=== PATIENT | male | born 1980 | race Caucasian/White ===

== ENCOUNTER 2016-11-01 07:18 | Inpatient (IN) | payer BC, OTHER ==
[~2016-11-01] VITALS: Ht 177.8 cm; Wt 98.0 kg
[2016-11-01 16:30] VITALS: BP 115/60
[2016-11-01] MEDS ORDERED: OLAN10TA3 PO (16:34)
[2016-11-01] MEDS ORDERED: VENL150C2 PO (16:34)
--- NOTE | 2016-11-01 16:35 | NUR ---
Intake assessment Pt seen by primary nurse down in intake. Pt has another person present, pt unwilling to fully answer all questions at this time. The following information was gathered then relayed to Dr Bell: VS: 115/60, HR 64, T: 98.4 R: 16 SpO2: 98% on RA. Pt states that he is allergic to PCN, but does not know what type of reaction he has when he takes it. Pt states he has a PMH of depression for which he takes effexor 150mg PO daily, last taken this morning. Zyprexa 10mg PO QHS, last taken on 10/31/16 PM. Pt states that he was prescribed suboxone, unwilling to provide details on dosage at this time. Pt also states that he takes valium as prescribed, unwilling to provide details at this time. Pt reports that he takes xanax 6mg PO daily x 6 months, last taken 11/01/16 in the morning. Will continue with assessment upon arrival to the unit. All needs addressed at this time.
[2016-11-01 18:05] LABS: *AMPHETAMINE, URINE NEGATIVE (NEGATIVE); *BARBITURATE, URINE NEGATIVE (NEGATIVE); *CANNABINOID, URINE POSITIVE (NEGATIVE); *COCCAINE, URINE NEGATIVE (NEGATIVE); *OPIATE, URINE POSITIVE (NEGATIVE); *PHENCYCLIDINE SCREEN,URINE NEGATIVE (NEGATIVE)
[2016-11-01] MEDS ORDERED: IBUPROFEN 600 MG TABLET PO PRN (18:45)
[2016-11-01] MEDS ORDERED: ONDANSETRON 4 MG/2 ML VIAL IM PRN (18:45)
[2016-11-01] MEDS ORDERED: LOPERAMIDE HCL 2 MG CAPSULE PO PRN ×2 (18:45)
[2016-11-01] MEDS ORDERED: HYDROXYZINE PAMOATE 25 MG CAPSULE PO PRN (18:45)
[2016-11-01] MEDS ORDERED: DICYCLOMINE HCL 20 MG TABLET PO PRN (18:45)
[2016-11-01] MEDS ORDERED: DIAZEPAM 5 MG TABLET PO PRN (18:45)
[2016-11-01] MEDS ORDERED: MIRALAX 17 GM POWD.PACK PO PRN (18:45)
[2016-11-01] MEDS ORDERED: MAG HYDROX/AL HYDROX/SIMETH 30 ML LIQUID UDC PO PRN (18:45)
[2016-11-01] MEDS ORDERED: ONDANSETRON ODT 4 MG TAB.RAPDIS SL PRN (18:45)
[2016-11-01] MEDS ORDERED: METHOCARBAMOL 750 MG TABLET PO PRN (18:45)
[2016-11-01] MEDS ORDERED: BUPRENORPHINE HCL 2 MG TAB.SUBL SL PRN (18:45)
[2016-11-01] MEDS ORDERED: diphenhydrAMINE 50 MG CAPSULE PO PRN (18:45)
[2016-11-01] MEDS ORDERED: CLONIDINE HCL 0.1 MG TABLET PO PRN (18:45)
[2016-11-01] MEDS ORDERED: DIAZEPAM 10 MG TABLET PO PRN ×2 (18:45)
[2016-11-01] MEDS ORDERED: MAGNESIUM HYDROXIDE 30 ML LIQUID UDC PO PRN (18:45)
[2016-11-01] MEDS ORDERED: ACETAMINOPHEN 325 MG TABLET PO PRN (18:45)
[2016-11-01] MEDS ORDERED: LORAZEPAM 2 MG/1 ML VIAL IM PRN (18:45)
--- NOTE | 2016-11-01 19:09 | NUR ---
End of shift note SBAR report given to shift production supervisor nurse. Pt admitted for opiate and benzo dependence. Pt refused to provide further admission information. Dr Bell aware. Pt is stable, appears to be slightly intoxicated. Pt is ambulating around unit with staff members. All needs addressed at this time. Pt is scheduled to start on a custom subutex and valium taper on 11/02/16.
[2016-11-01 19:59] LABS: BASOPHILS # (AUTO) 0.1 K/uL (0.0-8.0); HEMATOCRIT 38.5 % (36.7-47.1); HEMOGLOBIN 12.9 g/dL (12.5-16.3); MONOCYTES # (AUTO) 0.4 K/uL (2.0-10.0)
[2016-11-01 20:00] VITALS: BP 115/60
--- NOTE | 2016-11-01 20:00 | NUR ---
1999 ADMISSION NOTE: Patient pre-admitted to [facility] floor at 1700 by Racheal montoya RN. Patient is received awake, alert and sitting in his bedside chair, in his room # 302. Patient responds to nurse's greeting and introduction with a smile and a soft, " Hi, I'm doing okay and how are you doing?" Patient's color is tannish-pink and his skin is warm, dry and intact. Multiple black ink skin tatoos noted on patient's arm, legs and upper torso. Patient is oriented to person, place, day, date and his personal situation. Reoriented easily to time. Patient's lung sounds are clear bilaterally and active bowel sounds are noted X 4 abdominal Quads. Vital signs are: 98.4-82-18 113/75 o2 sat 94%, COWS 5, CIWA 3 Patient denies any pain at this time. Patient is admitted for: Suboxone, Valium, Xanax, Heroin and Alcohol withdrawal. Patient uses (1) Suboxone, 4 mg 2 times per week, oral. Last use was on 11/01/16, 4 mg p.o. (2) Valium, 30 to 40 mg oral, daily. Last use was on 11/01/16, 30 mg p.o. (3) Xanax, 4 to 6 mg oral, daily. Last use was on 11/01/16, 4 mg p.o. (4) Heroin, 1 to 2 grams IV daily. Last use was on 11/01/16, 1 gram IV. (5) Alcohol (Beer), 12-pack daily, oral. Last use was on 11/01/16 12 pack p.o. Patient states that he has been using these substances at these rates for the past 3 years. Patient states that he has been in several drug treatment facilities, (1) [place], [place], February for 2 weeks (2) [place], [place] Nov, 2015 for 10 days (3) [place], [place] July to September, for 3 months (4) [facility], Nov, 2015 for 10 days. Patient states that he is unable to name anymore facilities specifically. Patient's longest period of sobriety was 4 months, in 2005. Patient states further that he attends AA/NA but doesn't presently have a sponsor. Patient denies any seizure history and he states that he presently does not have a PCP. Patient is allergic to PENICILLINS, and he states that he has a medical/psychiatric history of: Anxiety, Depression, Bipolar and Hepatitis C. Patient states that he has had a full course of the Hepatitis C drug, Harvoni and he now no longer tests positive for Hepatitis C. Patient weighs 216 lbs and he is 5 feet, 10 inches tall. Patient moves all his extremities fully WNL, though a bit slowly. Patient is pleasant, cooperative and is verbally appropriate, when interacting with nurse, however his affect is a bit flat and hsi speech is slightly delayed and soft. Patient oriented to his room, nurse call light and his immediate surroundings. Patient's medications of Effexor and Zyprexa, which he takes daily, were reconciled by day shift nurse, Racheal. Patient last took these medications PM, 11/01/16. Patient offers no requests for anything at this time and he states that he has been taking fluids and eating a little from his Regular dinner tray with no gastric issues so far. Patient's bed is locked and in lowest position, bed rails are up X 1 and call light within patient's easy reach. Patient is in stable condition at this time.
[2016-11-01 20:02] LABS: BASOPHILS % (AUTO) 0.7 % (0.0-2.0); EOSINOPHILS # (AUTO) 0.2 K/uL (0.0-0.7); EOSINOPHILS % (AUTO) 2.7 % (0.0-7.0); LYMPHOCYTES % (AUTO) 24.6 % (20.5-51.5); MEAN CORPUSCULAR HEMOGLOBIN 29.3 uug (23.8-33.4); MEAN CORPUSCULAR HGB CONC 34 g/dL (32.5-36.3); MEAN CORPUSCULAR VOLUME 87.7 fL (73.0-96.2); MONOCYTES % (AUTO) 4.8 % (0.0-11.0); NEUTROPHILS # (AUTO) 5.5 K/uL (1.8-8.9); NEUTROPHILS % (AUTO) 67.2 % (38.5-71.5); PLATELET COUNT (AUTO) 256 K/uL (152-348); RED BLOOD CELL COUNT(AUTO) 4.39 MIL/uL (4.06-5.63); RED CELL DISTRIBUTION WIDTH 12.7 % (12.1-16.2); WHITE BLOOD COUNT (AUTO) 8.2 K/uL (3.6-10.2)
[2016-11-01 20:11] LABS: ALBUMIN 3.8 g/dL (3.4-5.0); BILIRUBIN,TOTAL 0.3 mg/dL (0.2-1.0); CALCIUM 8.7 mg/dL (8.5-10.1); CREATININE 1.3 mg/dL (0.6-1.3); POTASSIUM 4.3 mmol/L (3.5-5.1); TOTAL PROTEIN, SERUM 7.8 g/dL (6.4-8.2)
[2016-11-01 20:17] LABS: THYROID STIMULATING HORMONE 5.805 mIU/mL (0.358-3.740)
[2016-11-01 20:21] LABS: HIV-1 p24 ANTIGEN NON REACTIVE (NONREACTIVE); HIV-1/2 ANTIBODY NON REACTIVE (NONREACTIVE)
[2016-11-01] MEDS ORDERED: THIAMINE HCL 200 MG/2 ML VIAL IM ONE (20:30)
[2016-11-01] MEDS ORDERED: LORAZEPAM 1 MG TABLET PO PRN ×2 (20:30)
--- NOTE | 2016-11-01 20:50 | NUR ---
Dr. Bell in to see patient.
[2016-11-01] MEDS ORDERED: LORAZEPAM 1 MG TABLET PO SCH (21:00)
[2016-11-01] MEDS: GABAPENTIN 300 MG CAPSULE PO SCH (21:52)
[2016-11-02] VITALS: BP 106/58
[2016-11-02 04:00] VITALS: BP 108/56
--- NOTE | 2016-11-02 06:30 | NUR ---
0630 Patient slept a total of 4 hours and 30 minutes, and he was up to the bathroom for 2 voids and no stools. Total intake was 1,o15 ml p.o. V/SS afebrile, COWS 5, CIWA 3. Prn medication given noted separately per floor protocol. Patient is presently resting quietly in stable condition. Respirations even, unlabored at 14.
--- NOTE | 2016-11-02 06:33 | NUR ---
PRN MEDICATION: Prn Ativan 1 mg p.o. given for c/o "anxiety, pressure feeling in the chest, watery eyes, COWS 5, CIWA 3.
--- NOTE | 2016-11-02 07:33 | NUR ---
REASSESSMENT PRN MEDICATION: Patient is downstairs on hospital patio for smoke break. Unable to reassess at this time.
--- NOTE | 2016-11-02 08:00 | NUR ---
START OF SHIFT Client is in bed A/O x4, he presents with irritable, anxious mood, flat affect, clammy skin, dilated pupils, he reports chills, denies any N/V/D. Bilateral lung clear on auscultation, abdomen soft, non-tender, no edema noted. Encouraged increased fluid intake and activity as tolerated. Encouraged group therapy attendance. Per endorsing nurse, client is a 36 year old male, admitted on 11/01/16 for opioid and benzodiazepine, and alcohol withdrawal, He is on 5 day Subutex / 5 day Valium to start today @ 0900, for management of withdrawal symptoms. PMH Anxiety, Bipolar affective disorder, Attention deficit hyperactivity disorder, Schizoaffective disorder, Chronic tobacco use, Opioid use disorder, Sedative hypnotic use disorder, Alcohol use disorder. PRN Ativan 1mg for anxiety. He reports allergy to PCN, full code, regular diet. Client is on seizure precautions. Side rails X 2 up/padded, call light within reach, bed locked in lowest positions. Will continue with plan of care.
[2016-11-02] MEDS: GABAPENTIN 300 MG CAPSULE PO SCH ×3 (08:15→21:00)
[2016-11-02] MEDS: MULTIVITAMINS,THERAPEUTIC TABLET PO SCH (08:15)
[2016-11-02] MEDS: LORAZEPAM 1 MG TABLET PO SCH ×4 (08:15→20:31)
[2016-11-02] MEDS: THIAMINE HCL 100 MG TABLET PO SCH (08:15)
[2016-11-02] MEDS: FOLIC ACID 1 MG TABLET PO SCH (08:15)
[2016-11-02] MEDS: BUPRENORPHINE HCL 2 MG TAB.SUBL SL SCH ×4 (08:16→20:32)
--- NOTE | 2016-11-02 08:24 | NUR ---
TB TEST TO L F/A Client tolerated well.
[2016-11-02 08:27] VITALS: BP 120/85
[2016-11-02] MEDS ORDERED: TUBERCULIN,PURIF.PROT.DERIV. 5 TU/0.1 ML TEST ID ONE (09:00)
[2016-11-02] MEDS ORDERED: DIAZEPAM 10 MG TABLET PO SCH (09:00)
[2016-11-02] MEDS ORDERED: BUPRENORPHINE HCL 2 MG TAB.SUBL SL SCH (09:00)
[2016-11-02] MEDS ORDERED: MULTIVITAMINS,THERAPEUTIC TABLET PO SCH (09:00)
--- NOTE | 2016-11-02 12:15 | NUR ---
PRN Clonidine 0.1mg Client reports anxiety, he appears with irritable mood, diaphoresis, Clonidine 0.1mg PO administered. Risk/benefits discuss. Call light within reach.
[2016-11-02 12:17] VITALS: BP 116/62
--- NOTE | 2016-11-02 13:15 | NUR ---
Reassessment PRN Clonidine 0.1mg Client is in bed, sound asleep, RR 16. Clonidine 0.1mg effective. Call light within reach
--- NOTE | 2016-11-02 13:45 | NUR ---
client refused his Subutex 4mg, Dr Bell notified. charge nurse made aware.
[2016-11-02 16:18] VITALS: BP 129/85
--- NOTE | 2016-11-02 16:30 | NUR ---
Client refused Subutex 4mg, notified.
--- NOTE | 2016-11-02 18:50 | NUR ---
END OF SHIFT: Client continues on first of 5 day Subutex/ 5 day Valium taper, for management of his withdrawal symptoms. He is in room, A/O X4, reports anxiety, chills, and fatigue, he denies any N/V/D. Last COWS 7/ CIWA 5. He refused last two taper dose of Subutex 4mg. PRN Clonidine for anxiety, diaphoresis, noted effective. He was not compliant with group therapy. Adequate intake 1710mL void x 3, stool x 1. Client is on seizure precautions. Side rails X 2 up/padded, call light within reach, bed locked in lowest positions. Endorsed to incoming nurse.
[2016-11-02 20:00] VITALS: BP 141/89
--- NOTE | 2016-11-02 20:00 | NUR ---
1999 Patient received awake, alert and just returning back to his room # 302 from [facility]. Gait is slightly slow but steady. Upon seeing nurse enter his room, patient states, " Hi, when do I get my next medications?" Patient is oriented to person, place, day, date, time and his personal situation. Patient's color is tannish-pink and his skin is warm, dry and intact. Patient states that he has been doing " okay today",eating his regular diet tray and taking ad clarissa fluids with no real gastric issues. Patient states further that he is socializing with other selected patients and attending [facility] consistently. Vital signs are: 97.6-66-18 141/89, O2 sat 98%, COWS 4, CIWA 5. Patient denies any pain or other discomforts and he voices no requests at this time. Fall/Seizure precautions continue. Patient was admitted on 11/01/16 for: Suboxone, Valium, Xanax, Heroin and Alcohol withdrawal and he is in his first day of a, 5-Day Valium medication taper and a 5-Day Subutex medication taper, both of which he is apparently tolerating well so far. Patient is cooperative and verbally appropriate while interacting with nurse, though his mood/affect is a bit flat and withdrawn. Bed is locked and in the lowest position, bed rails are up X 2 and call light within patient's easy reach.
[2016-11-02] MEDS: OLANZAPINE 5 MG TABLET PO SCH (20:32)
[2016-11-03] VITALS: BP 114/53
--- NOTE | 2016-11-03 | NUR ---
Vital signs are: 97.9-51-16 114/53, O2 sat 97%, COWS 3, COWS 3.
[2016-11-03 04:00] VITALS: BP 113/67
--- NOTE | 2016-11-03 04:00 | NUR ---
Vital signs are: 97.5-52-18 113/67, O2 sat 98%, COWS 2, CIWA 3
--- NOTE | 2016-11-03 06:30 | NUR ---
0630 Patient slept a total of 7.5 hours and he was up to the bathroom for 3 voids and no stools. Total intake was 1,472 ml p.o. No prn medications given this shift. V/SS afebrile. Last COWS 2, last CIWA 3. Patient is presently sleeping comfortably in stable condition. Eyes closed and respirations even, unlabored at 16.
--- NOTE | 2016-11-03 07:30 | NUR ---
Start of shift note; Received report from night nurse. Patient is a 36 y/o male admitted on 11/01/16 for Benzodiazepine/Opiate/ETOH dependence. Patient was placed on 5 day Valium and 5 day Subutex taper, no adverse reactions noted. Patient reported history of depression, anxiety and bipolar disorder. Patient noted to be allergic to PCN, on full code status and on regular diet. Patient slept for 7.5 hours. Bed in lowest position, call light within reach. Will closely monitor patient.
[2016-11-03 08:00] VITALS: BP 138/80
[2016-11-03] MEDS: LORAZEPAM 1 MG TABLET PO SCH ×3 (08:32→20:29)
[2016-11-03] MEDS: FOLIC ACID 1 MG TABLET PO SCH (08:32)
[2016-11-03] MEDS: MULTIVITAMINS,THERAPEUTIC TABLET PO SCH (08:32)
[2016-11-03] MEDS: BUPRENORPHINE HCL 2 MG TAB.SUBL SL SCH ×3 (08:32→20:32)
[2016-11-03] MEDS: THIAMINE HCL 100 MG TABLET PO SCH (08:32)
[2016-11-03] MEDS: VENLAFAXINE XR 150 MG CAP.SR.24H PO SCH (08:33)
[2016-11-03] MEDS: GABAPENTIN 300 MG CAPSULE PO SCH ×2 (08:36→15:31)
[2016-11-03] MEDS ORDERED: DIAZEPAM 10 MG TABLET PO SCH (09:00)
[2016-11-03] MEDS ORDERED: BUPRENORPHINE HCL 2 MG TAB.SUBL SL SCH ×2 (09:00→15:00)
[2016-11-03 12:00] VITALS: BP 123/74
[2016-11-03] MEDS ORDERED: ASPIRIN/ACETAMINOPHEN/CAFFEINE TABLET PO PRN (13:45)
[2016-11-03] MEDS ORDERED: LORAZEPAM 1 MG TABLET PO ONE (13:45)
--- NOTE | 2016-11-03 13:49 | NUR ---
New Order; on unit, evaluated patient and ordered Ativan 2mg one time order, patient appears very anxious with current CIWA score of 12. Will continue to monitor patient for effectiveness of medication.
[2016-11-03 14:06] LABS: HCV AB >11.0 s/co ratio (0.0-0.9); HEPATITIS B CORE AB, IgM Negative (Negative); HEPATITIS B SURFACE AG Negative (Negative)
--- NOTE | 2016-11-03 14:49 | NUR ---
Re-assessment; One time order of Ativan is effective, patient's current CIWA score is 6 ,mild anxiety/agitation still noted. Will closely monitor patient.
[2016-11-03 16:00] VITALS: BP 130/74
--- NOTE | 2016-11-03 18:03 | NUR ---
Medication refusal; Patient refused to take due Subutex, educated the patient regarding the importance of being compliant to medication regime and treatment plan, patient verbalized understanding.
--- NOTE | 2016-11-03 18:20 | NUR ---
End of shift note; Patient is AOX4. Patient is a 36 y/o male admitted on 11/01/16 for Benzodiazepine/Opiate/ETOH dependence. Patient was placed on 5 day Valium and 5 day Subutex taper, no adverse reactions noted. Patient reported history of depression, anxiety and bipolar disorder. Patient noted to be allergic to PCN, on full code status and on regular diet. Patient was educated on the importance of compliance to treatment plan and medication regime, verbalized understanding. Medications were effective in reducing withdrawal symptoms. Patient is on fall and seizure precaution. Bed in lowest position, call light within reach. Met all needs.
[2016-11-03 20:00] VITALS: BP 131/92
--- NOTE | 2016-11-03 20:00 | NUR ---
Start of Shift Patient is a 36-year old, male, admitted for Benzodiazepine/Opiate/ETOH dependence. Patient was placed on 5-day Valium and 5-day Subutex taper, both started 11/02/2016 and with no adverse reactions noted. Patient reported history of depression, anxiety and bipolar disorder. Patient noted to be allergic to PCN, is Full Code and on Regular Diet. Pt is AAOx4, no anxiety noted and with no SOB observed. Pt is ambulatory with steady gait, and with intact skin. Fall, universal and safety prec in place. Call light within reach. Kept pt warm, dry and comfortable. All needs met. Will continue to monitor.
[2016-11-03] MEDS: BACLOFEN 10 MG TABLET PO SCH (20:29)
[2016-11-03] MEDS: OLANZAPINE 5 MG TABLET PO SCH (20:29)
[2016-11-03] MEDS ORDERED: BACLOFEN 10 MG TABLET ONE (20:33)
[2016-11-03] MEDS ORDERED: GABAPENTIN 300 MG CAPSULE ONE (20:33)
[2016-11-03] MEDS ORDERED: GABAPENTIN 300 MG CAPSULE PO SCH (21:00)
[2016-11-04] VITALS: BP 125/89
[2016-11-04 04:00] VITALS: BP 133/85
--- NOTE | 2016-11-04 07:05 | NUR ---
End of Shift Patient is a 36-year old, male, admitted for Benzodiazepine/Opiate/ETOH dependence. Patient was placed on 5-day Valium and 5-day Subutex taper, both started 11/02/2016 and with no adverse reactions noted. Patient reported history of depression, anxiety and bipolar disorder. Patient noted to be allergic to PCN, is Full Code and on Regular Diet. Pt is AAOx4, no anxiety noted and with no SOB observed. Pt is ambulatory with steady gait, and with intact skin. Fall, universal and safety prec in place. Call light within reach. Kept pt warm, dry and comfortable. All needs met. Latest COWS=5, CIWA=4 , slept for 7 hours. Endorsed to AM shift nurse for continuity of care.
--- NOTE | 2016-11-04 07:38 | NUR ---
Start of shift note; Received report from night nurse. Patient is a 36 y/o male admitted on 11/01/16 for Benzodiazepine/Opiate/ETOH dependence. Patient was placed on 5 day Valium and 5 day Subutex taper, no adverse reactions noted. Patient reported history of depression, anxiety and bipolar disorder. Patient noted to be allergic to PCN, on full code status and on regular diet. Patient slept for 7 hours. Bed in lowest position, call light within reach. Will closely monitor patient.
[2016-11-04 08:00] VITALS: BP 120/79
[2016-11-04] MEDS ORDERED: BUPRENORPHINE HCL 2 MG TAB.SUBL SL SCH ×2 (09:00)
[2016-11-04] MEDS ORDERED: DIAZEPAM 5 MG TABLET PO SCH (09:00)
[2016-11-04] MEDS ORDERED: GABAPENTIN 300 MG CAPSULE PO SCH (09:00)
[2016-11-04] MEDS: MULTIVITAMINS,THERAPEUTIC TABLET PO SCH (09:29)
[2016-11-04] MEDS: FOLIC ACID 1 MG TABLET PO SCH (09:29)
[2016-11-04] MEDS: BACLOFEN 10 MG TABLET PO SCH ×3 (09:29→20:36)
[2016-11-04] MEDS: THIAMINE HCL 100 MG TABLET PO SCH (09:29)
[2016-11-04] MEDS: VENLAFAXINE XR 150 MG CAP.SR.24H PO SCH (09:29)
[2016-11-04] MEDS: LORAZEPAM 1 MG TABLET PO SCH ×4 (09:29→20:36)
[2016-11-04 12:00] VITALS: BP 128/96
[2016-11-04] MEDS ORDERED: LORAZEPAM 1 MG TABLET PO ONE (12:00)
--- NOTE | 2016-11-04 12:00 | NUR ---
New Order; MD ordered One time dose of Ativan 1mg PO now. Patient's current CIWA is 11 manifested by anxiety, sweating, agitation, tremors to touch, BP of 128/96, HR of 102. Order given as per MD order. Will continue to monitor patient.
--- NOTE | 2016-11-04 13:00 | NUR ---
Re-assessment; One time dose of Ativan is effect patient is calm and comfortable with current CIWA score of 8. Will continue to monitor patient.
[2016-11-04] MEDS: CLONIDINE HCL 0.1 MG TABLET PO SCH ×2 (14:07→20:37)
[2016-11-04] MEDS: BUPRENORPHINE HCL 2 MG TAB.SUBL SL SCH ×2 (14:08→20:37)
[2016-11-04] MEDS: GABAPENTIN 300 MG CAPSULE PO SCH ×2 (14:08→20:36)
[2016-11-04 16:00] VITALS: BP 122/78
[2016-11-04 19:29] LABS: BASOPHILS # (AUTO) 0.1 K/uL (0.0-8.0); BASOPHILS % (AUTO) 0.9 % (0.0-2.0); EOSINOPHILS # (AUTO) 0.3 K/uL (0.0-0.7); EOSINOPHILS % (AUTO) 2.9 % (0.0-7.0); HEMATOCRIT 42.1 % (36.7-47.1); HEMOGLOBIN 14.4 g/dL (12.5-16.3); LYMPHOCYTES # (AUTO) 2.7 K/uL (20.0-40.0); LYMPHOCYTES % (AUTO) 25.3 % (20.5-51.5); MEAN CORPUSCULAR HEMOGLOBIN 29.6 uug (23.8-33.4); MEAN CORPUSCULAR HGB CONC 34 g/dL (32.5-36.3); MEAN CORPUSCULAR VOLUME 86.7 fL (73.0-96.2); MONOCYTES # (AUTO) 0.6 K/uL (2.0-10.0); MONOCYTES % (AUTO) 5.3 % (0.0-11.0); NEUTROPHILS % (AUTO) 65.6 % (38.5-71.5); PLATELET COUNT (AUTO) 244 K/uL (152-348); RED BLOOD CELL COUNT(AUTO) 4.85 MIL/uL (4.06-5.63); WHITE BLOOD COUNT (AUTO) 10.7 K/uL (3.6-10.2)
[2016-11-04 19:36] LABS: ALANINE AMINOTRANSFERASE 29 U/L (16-63); ALKALINE PHOSPHATASE 70 U/L (50-136); ASPARTATE AMINOTRANSFERASE 21 U/L (15-37); BILIRUBIN,DIRECT < 0.1 mg/dL (0.0-0.2); BILIRUBIN,TOTAL 0.2 mg/dL (0.2-1.0); CALCIUM 9.2 mg/dL (8.5-10.1); CARBON DIOXIDE 27 mmol/L (21-32); CHLORIDE 104 mmol/L (98-107); CREATININE 1.2 mg/dL (0.6-1.3); GFR 68 mL/min (>60); GLUCOSE 95 mg/dL (74-106); MAGNESIUM 1.9 mg/dL (1.8-2.4); PHOSPHOROUS 4.5 mg/dL (2.5-4.9); SODIUM SERUM 142 mmol/L (136-145); TOTAL PROTEIN, SERUM 8.1 g/dL (6.4-8.2); UREA NITROGEN, BLOOD 15 mg/dL (7-18)
[2016-11-04 20:00] VITALS: BP 132/86
--- NOTE | 2016-11-04 20:00 | NUR ---
Start of Shift Patient is a 36-year old, male, admitted for Benzodiazepine/Opiate/ETOH dependence. Patient was placed on 5-day Valium and 5-day Subutex taper, both started 11/02/2016 and with no adverse reactions noted. Patient reported history of depression, anxiety and bipolar disorder. Patient noted to be allergic to PCN, is Full Code and on Regular Diet. Pt is AAOx4, no anxiety noted and with no SOB observed. Pt is ambulatory with steady gait, and with intact skin. Fall, universal and safety prec in place. Call light within reach. Kept pt warm, dry and comfortable. All needs met. Latest COWS=2, CIWA=3. Will continue to monitor.
[2016-11-04 20:11] LABS: THYROID STIMULATING HORMONE 0.578 mIU/mL (0.358-3.740)
[2016-11-04] MEDS ORDERED: NICOTINE POLACRILEX 4 MG GUM-PK OF TEN BC ONE (20:28)
[2016-11-04] MEDS: OLANZAPINE 5 MG TABLET PO SCH (20:36)
[2016-11-04] MEDS: NICOTINE POLACRILEX 4 MG GUM-PK OF TEN BC PRN (20:36)
[2016-11-05] VITALS: BP 137/88
[2016-11-05 04:00] VITALS: BP 128/84
--- NOTE | 2016-11-05 07:08 | NUR ---
End of Shift Patient is a 36-year old, male, admitted for Benzodiazepine/Opiate/ETOH dependence. Patient was placed on 5-day Valium and 5-day Subutex taper, both started 11/02/2016 and with no adverse reactions noted. Patient reported history of depression, anxiety and bipolar disorder. Patient noted to be allergic to PCN, is Full Code and on Regular Diet. Pt is AAOx4, no anxiety noted and with no SOB observed. Pt is ambulatory with steady gait, and with intact skin. Fall, universal and safety prec in place. Call light within reach. Kept pt warm, dry and comfortable. All needs met. Latest COWS=2, CIWA=2, slept for 6 hours. Endorsed to AM shift nurse for continuity of care.
--- NOTE | 2016-11-05 07:35 | NUR ---
START OF SHIFT Received pt this am AOx4. Pt is walking around unit socializing with peers. He states he feels very anxious, restless legs, and has a headache. He was given no PRNs during last shift per night nurse. He slept 6 hours. Last CIWA 2 COWS 2 per night nurse. Pt is on 5 day Subutex 5 day Valium taper. Pt is requesting 0900 medications at this time. Will administer at appropriate time. Will provide safe and supportive environment. Encouraged attendance of groups and activities. Will continue to monitor.
[2016-11-05 08:00] VITALS: BP 124/78
[2016-11-05] MEDS: GABAPENTIN 300 MG CAPSULE PO SCH ×3 (08:05→20:25)
[2016-11-05] MEDS: MULTIVITAMINS,THERAPEUTIC TABLET PO SCH (08:05)
[2016-11-05] MEDS: LORAZEPAM 1 MG TABLET PO SCH ×3 (08:05→20:25)
[2016-11-05] MEDS: FOLIC ACID 1 MG TABLET PO SCH (08:05)
[2016-11-05] MEDS: BACLOFEN 10 MG TABLET PO SCH ×3 (08:06→20:25)
[2016-11-05] MEDS: THIAMINE HCL 100 MG TABLET PO SCH (08:06)
[2016-11-05] MEDS: BUPRENORPHINE HCL 2 MG TAB.SUBL SL SCH ×3 (08:06→20:26)
[2016-11-05] MEDS: VENLAFAXINE XR 150 MG CAP.SR.24H PO SCH (08:06)
[2016-11-05] MEDS: CLONIDINE HCL 0.1 MG TABLET PO SCH ×3 (08:06→20:25)
[2016-11-05] MEDS ORDERED: BUPRENORPHINE HCL 2 MG TAB.SUBL SL SCH (09:00)
[2016-11-05] MEDS ORDERED: DIAZEPAM 5 MG TABLET PO SCH (09:00)
[2016-11-05] MEDS: NICOTINE POLACRILEX 4 MG GUM-PK OF TEN BC PRN (09:35)
[2016-11-05 12:00] VITALS: BP 114/77
--- NOTE | 2016-11-05 12:23 | NUR ---
PRN MEDS PRN Motrin given for c/o inflammation in bilat legs. Will reasses
--- NOTE | 2016-11-05 12:44 | NUR ---
Pt reports smoking marijuana "heavily" about 3 grams every day for the last year.
[2016-11-05] MEDS ORDERED: METHYL SALICYLATE/MENTHOL CREAM 28 GM TUBE TOP PRN (12:45)
--- NOTE | 2016-11-05 13:10 | NUR ---
PRN EFFECTIVENESS Pt states medication helped his legs feel better. He reports pain decreased from 7/10 to 3/10
[2016-11-05] MEDS: NICOTINE 14 MG/24HR PATCH TD SCH (15:41)
[2016-11-05 16:00] VITALS: BP 110/55
--- NOTE | 2016-11-05 18:34 | NUR ---
END OF SHIFT NOTE- Pt continues on 5 day Ativan/ 5 day Subutex taper. Pt given PRN Motrin during shift for c/o inflammation in bilat legs with effectiveness per patient. Patient given Nicotine gum per pt request. Pt states his medications are successfully managing his S/S of W/D. Patient attended groups and activities today and socialized with peers. Last COWS 3 CIWA 3. Pt presented restless and anxious during shift. Vital signs stable. All needs have been met. All safety measures in place. Will pass shift report to night nurse.
[2016-11-05 20:00] VITALS: BP 128/82
--- NOTE | 2016-11-05 20:00 | NUR ---
Start of Shift Patient is a 36-year old, male, admitted for Benzodiazepine/Opiate/ETOH dependence. Patient was placed on 5-day Valium and 5-day Subutex taper, both started 11/02/2016 and with no adverse reactions noted. Patient reported history of depression, anxiety and bipolar disorder. Patient noted to be allergic to PCN, is Full Code and on Regular Diet. Pt is AAOx4, no anxiety noted and with no SOB observed. Pt is ambulatory with steady gait, and with intact skin. Fall, universal and safety prec in place. Call light within reach. Kept pt warm, dry and comfortable. All needs met. Latest COWS=4, CIWA=3. Will continue to monitor.
[2016-11-05] MEDS: OLANZAPINE 5 MG TABLET PO SCH (20:25)
[2016-11-06] VITALS: BP 130/78
[2016-11-06 04:00] VITALS: BP 125/77
[2016-11-06] MEDS: NICOTINE POLACRILEX 4 MG GUM-PK OF TEN BC PRN (06:13)
--- NOTE | 2016-11-06 07:55 | NUR ---
Start of shift note; Received report from night nurse. Patient is a 36 y/o male admitted on 11/01/16 for Benzodiazepine/Opiate/ETOH dependence. Patient is currently AOX4. Patient was placed on 5 day Valium and 5 day Subutex taper, no adverse reactions noted. Patient reported history of depression, anxiety and bipolar disorder. Patient noted to be allergic to PCN, on full code status and on regular diet. Patient did not receive PRN medications last night. Bed in lowest position, call light within reach. Will closely monitor patient.
[2016-11-06 08:00] VITALS: BP 131/68
[2016-11-06] MEDS: BACLOFEN 10 MG TABLET PO SCH ×3 (08:02→20:30)
[2016-11-06] MEDS: MULTIVITAMINS,THERAPEUTIC TABLET PO SCH (08:02)
[2016-11-06] MEDS: BUPRENORPHINE HCL 2 MG TAB.SUBL SL SCH ×2 (08:02→20:30)
[2016-11-06] MEDS: LORAZEPAM 1 MG TABLET PO SCH ×2 (08:02→20:29)
[2016-11-06] MEDS: GABAPENTIN 300 MG CAPSULE PO SCH ×3 (08:02→20:29)
[2016-11-06] MEDS: THIAMINE HCL 100 MG TABLET PO SCH (08:02)
[2016-11-06] MEDS: CLONIDINE HCL 0.1 MG TABLET PO SCH ×3 (08:02→20:30)
[2016-11-06] MEDS: NICOTINE 14 MG/24HR PATCH TD SCH ×2 (08:03→08:08)
[2016-11-06] MEDS: FOLIC ACID 1 MG TABLET PO SCH (08:03)
[2016-11-06] MEDS ORDERED: DIAZEPAM 5 MG TABLET PO SCH (09:00)
[2016-11-06] MEDS ORDERED: BUPRENORPHINE HCL 2 MG TAB.SUBL SL SCH (09:00)
[2016-11-06] MEDS: VENLAFAXINE XR 150 MG CAP.SR.24H PO SCH (09:16)
[2016-11-06 12:00] VITALS: BP 128/72
[2016-11-06] MEDS: HYDROXYZINE PAMOATE 25 MG CAPSULE PO PRN (12:57)
[2016-11-06] MEDS ORDERED: CLONIDINE HCL 0.1 MG TABLET PO ONE (13:00)
--- NOTE | 2016-11-06 13:00 | NUR ---
New order and PRN medication; Patient noted to be agitated and anxious, patient pacing back and forth on the hallway, redirected as needed. MD ordered ONE time order of Clonidine 0.1mg for agitation and anxiety, current BP is 131/68, PRN Vistaril 50mg PO also given pre MD order for anxiety. Will continue to monitor patient.
[2016-11-06] MEDS ORDERED: LORAZEPAM 1 MG TABLET PO ONE (13:15)
[2016-11-06] MEDS ORDERED: GABAPENTIN 300 MG CAPSULE PO ONE (13:15)
--- NOTE | 2016-11-06 14:00 | NUR ---
Re-assessment and new orders; PRN Vistaril and Clonidine was ineffective, patient is still very anxious and agitated, still pacing back and forth in the room. MD ordered One time order of Ativan 1mg PO for anxiety manifested by increased HR 102, with CIWA score of 8. MD also ordered Neurontin 900mg one time order PO, medications given at 1348. Will continue to monitor patient.
--- NOTE | 2016-11-06 15:00 | NUR ---
Re-assessment; Patient is calm and comfortable and does not seem anxious at this time. Medications were effective Addendum: 11/06/16 at 1608 by ROXANE KELLY LVN Patient's current CIWA score is 3.
[2016-11-06 16:00] VITALS: BP 119/69
[2016-11-06 20:00] VITALS: BP 136/88
--- NOTE | 2016-11-06 20:00 | NUR ---
Start of Shift Patient is a 36-year old, male, admitted for Benzodiazepine/Opiate/ETOH dependence. Patient was placed on 5-day Valium and 5-day Subutex taper, both started 11/02/2016 and with no adverse reactions noted. Patient reported history of depression, anxiety and bipolar disorder. Patient noted to be allergic to PCN, is Full Code and on Regular Diet. Pt is AAOx4, no anxiety noted and with no SOB observed. Pt is ambulatory with steady gait, and with intact skin. Fall, universal and safety prec in place. Call light within reach. Kept pt warm, dry and comfortable. All needs met. Latest COWS=7, CIWA=6. Will continue to monitor.
[2016-11-06] MEDS: OLANZAPINE 5 MG TABLET PO SCH (20:29)
[2016-11-06] MEDS: busPIRone 5 MG TABLET PO SCH (20:29)
[2016-11-07] VITALS: BP 129/75
[2016-11-07] MEDS: HYDROXYZINE PAMOATE 25 MG CAPSULE PO PRN (01:15)
[2016-11-07] MEDS: NICOTINE POLACRILEX 4 MG GUM-PK OF TEN BC PRN ×2 (01:15→07:40)
--- NOTE | 2016-11-07 01:16 | NUR ---
RN note PRN Vistaril Pt c/o anxiety and feeling restless. Administered Vistaril 50 mg PO. Will reassess.
--- NOTE | 2016-11-07 02:20 | NUR ---
RN note reassess Pt asleep on bed, no SOB nor facial grimacing noted. Vistaril is effective.
[2016-11-07 04:00] VITALS: BP 120/76
--- NOTE | 2016-11-07 07:06 | NUR ---
End of Shift Patient is a 36-year old, male, admitted for Benzodiazepine/Opiate/ETOH dependence. Patient was placed on 5-day Valium and 5-day Subutex taper, both started 11/02/2016 and with no adverse reactions noted. Patient reported history of depression, anxiety and bipolar disorder. Patient noted to be allergic to PCN, is Full Code and on Regular Diet. Pt is AAOx4, no anxiety noted and with no SOB observed. Pt is ambulatory with steady gait, and with intact skin. Fall, universal and safety prec in place. Call light within reach. Kept pt warm, dry and comfortable. All needs met. Latest COWS=2, CIWA=3, slept for 5 hours. Endorsed to AM shift nurse for continuity of care.
--- NOTE | 2016-11-07 07:30 | NUR ---
Start of shift note; Received report from night nurse. Patient is AOX4. Patient is a 36 y/o male admitted on 11/01/16 for Benzodiazepine/Opiate/ETOH dependence. Patient is currently AOX4. Patient was placed on 5 day Valium and 5 day Subutex taper, no adverse reactions noted patient is on his last day of taper. Patient reported history of depression, anxiety and bipolar disorder. Patient noted to be allergic to PCN, on full code status and on regular diet.Bed in lowest position, call light within reach. Will closely monitor patient.
--- NOTE | 2016-11-07 07:42 | NUR ---
PRN medication; Patient requested for Nicotine Gum, given to patient as per ordered. Educated patient regarding the importance of not smoking while using nicotine gum, patient verbalized understanding.
[2016-11-07 08:00] VITALS: BP 116/77
[2016-11-07] MEDS: BACLOFEN 10 MG TABLET PO SCH ×2 (08:00→15:23)
[2016-11-07] MEDS: VENLAFAXINE XR 150 MG CAP.SR.24H PO SCH (08:00)
[2016-11-07] MEDS: CLONIDINE HCL 0.1 MG TABLET PO SCH ×3 (08:01→20:06)
[2016-11-07] MEDS: MULTIVITAMINS,THERAPEUTIC TABLET PO SCH (08:01)
[2016-11-07] MEDS: FOLIC ACID 1 MG TABLET PO SCH (08:01)
[2016-11-07] MEDS: GABAPENTIN 300 MG CAPSULE PO SCH ×4 (08:01→20:05)
[2016-11-07] MEDS: THIAMINE HCL 100 MG TABLET PO SCH (08:01)
[2016-11-07] MEDS: busPIRone 5 MG TABLET PO SCH ×2 (08:01→16:49)
[2016-11-07] MEDS: NICOTINE 14 MG/24HR PATCH TD SCH (08:04)
[2016-11-07] MEDS ORDERED: BUPRENORPHINE HCL 2 MG TAB.SUBL SL SCH (09:00)
[2016-11-07] MEDS ORDERED: LORAZEPAM 1 MG TABLET PO SCH (09:00)
[2016-11-07 13:00] VITALS: BP 124/88
[2016-11-07 16:00] VITALS: BP 124/80
[2016-11-07] MEDS ORDERED: BACLOFEN 20 MG TABLET PO PRN (18:00)
[2016-11-07 18:06] LABS: *HCV QUANT HCV Not Detected IU/mL (.)
--- NOTE | 2016-11-07 18:26 | NUR ---
End of shift note; Patient is AOX4. Patient is a 36 y/o male admitted on 11/01/16 for Benzodiazepine/Opiate/ETOH dependence. Patient was placed on 5 day Valium and 5 day Subutex taper completed taper without any adverse reactions noted. Patient reported history of depression, anxiety and bipolar disorder. Patient noted to be allergic to PCN, on full code status and on regular diet. Patient was educated on the importance of compliance to treatment plan and medication regime, verbalized understanding. Medications were effective in reducing withdrawal symptoms. Patient is medically cleared for discharge tomorrow. Patient is on fall and seizure precaution. Bed in lowest position, call light within reach. Met all needs.
--- NOTE | 2016-11-07 18:26 | NUR ---
START OF SHIFT NOTE Patient endorsed by outgoing day shift nurse. SBAR report received. Patient is a 36 years old male admitted to [facility] on 11/01/16 for Alcohol, Benzodiazepines, and Opioid Dependence, placed on 5 Day Valium and 5 Day Subutex Taper started on 11/02/16. NKA, Full Code, Regular Diet, Fall and Seizures Precautions. No Seizures History. Patient remains compliant with treatment plan, medications, and diet regime. Past Medical History: Anxiety disorder; Depressive disorder; Bipolar Disorder, Hepatitis C. Substance Use: Alcohol: " Beer 12 packs daily since 1999. Last used 12 packs on 11/01/16". Xanax PO: " 4-6 mg daily since 1996. Last used 4 mg PO on 11/01/16". Heroine IV: " 1-2 gram daily since 1999. Last used 1 gram IV on 11/01/16". Valium PO: 30-40 mg daily since 1996. Last used 30 mg PO on 11/01/16". Suboxone PO: 2 times/week since 2009. Last used 4mg PO on 11/01/16". Recent Hospitalization/Treatment History: February,: "[facility]", [place], [place] 2 weeks. Nov, 2015: "[facility]", [place], [place], 10 days. July - September,: "[facility]", [place], [place], 3 months. Nov, 2015: "[facility]"[place], [place], 10 days. Upon endorsement, patients in his room alert and oriented x4. Speech is soft and clear. COWS 3; CIWA 4. Patient 's anxious, agitated, yawning twice, c/o increased anxiety, sweating. Patient denied N/V, and diarrhea. Patient denied SI/HI. VS: T: 97'9; HR: 69; BP: 145/87; RA O2SAT 98%; RR: 18. Patient denied pain. Pain level "0/10". Breathing is unlabored and even. Patient denied SOB, and chest pain. Lung Sounds are clear. Heart rate regular. BS is active in all x 4 quadrants. Skin is intact, warm and moist by touch. Patient was encouraged fluids intake. Patient attended groups activities. Patient will discharging tomorrow. UDT results placed on chart. Safety measure in the place by hospital policy: Call light within reach, bed in the lowest position and locked, padded rails up x2. Will continue to monitor. Addendum: 11/08/16 at 0055 by LEXA COELLO RN Patient reported Allergies to Penicillin.
[2016-11-07 18:51] LABS: *AMPHETAMINE, URINE NEGATIVE (NEGATIVE); *BARBITURATE, URINE NEGATIVE (NEGATIVE); *CANNABINOID, URINE POSITIVE (NEGATIVE); *COCCAINE, URINE NEGATIVE (NEGATIVE); *OPIATE, URINE NEGATIVE (NEGATIVE); *PHENCYCLIDINE SCREEN,URINE NEGATIVE (NEGATIVE)
[2016-11-07 20:00] VITALS: BP 145/87
[2016-11-07] MEDS: OLANZAPINE 5 MG TABLET PO SCH (20:05)
--- NOTE | 2016-11-08 | NUR ---
VS/CIWA/COWS Deferred Assessment deferred d/t patient refusal, patient is sleeping. No S/S of distress noted. Breathing is unlabored and even. Safety measure in the place by hospital policy: Call light within reach, bed in the lowest position and locked, padded rails up x2. Will continue to monitor.
[2016-11-08 04:00] VITALS: BP 98/64
--- NOTE | 2016-11-08 07:17 | NUR ---
END OF SHIFT NOTE Patient is a 36 years old male admitted to [facility] on 11/01/16 for Alcohol, Benzodiazepines, and Opioid Dependence, placed on 5 Day Valium and 5 Day Subutex Taper started on 11/02/16. NKA, Full Code, Regular Diet, Fall and Seizures Precautions. No Seizures History. Patient remains compliant with treatment plan, medications, and diet regime. Past Medical History: Anxiety disorder; Depressive disorder; Bipolar Disorder, Hepatitis C. Substance Use: Alcohol: " Beer 12 packs daily since 1999. Last used 12 packs on 11/01/16". Xanax PO: " 4-6 mg daily since 1996. Last used 4 mg PO on 11/01/16". Heroine IV: " 1-2 gram daily since 1999. Last used 1 gram IV on 11/01/16". Valium PO: 30-40 mg daily since 1996. Last used 30 mg PO on 11/01/16". Suboxone PO: 2 times/week since 2009. Last used 4mg PO on 11/01/16". Recent Hospitalization/Treatment History: February,: "[facility]", [place], [place] 2 weeks. Nov, 2015: "[facility]", [place], [place], 10 days. July - September,: "[facility]"[place], [place], 3 months. Nov, 2015: "[facility]"[place], [place], 10 days. Last shift commander COWS decreased from 4 to 2; CIWA decreased from 4 to 2. Patient 's presented anxious, agitated. Patient 's yawning twice. Patient's c/o increased anxiety, sweating. Patient denied N/V, and diarrhea. Patient denied SI/HI. VS at 04:00: T: 97'9; HR: 67; BP: 98/64; RA O2SAT 100%; RR: 16. Patient denied pain. Pain level "0/10". Skin is intact, warm and moist by touch. Patient attended groups activities. No PRN Medications given during shift commander. Patient will discharging today, 11/08/16. UDT results placed on chart. Patient slept 4 hours 30 minutes, intake 1,005 ml, voided x2. Safety measure in the place by hospital policy: Call light within reach, bed in the lowest position and locked, padded rails up x2. Patient endorsed to day shift nurse. SBAR report given.
--- NOTE | 2016-11-08 07:30 | NUR ---
start of shift note: received pt from assistant casino shift manager nurse, pt is in stable condition at this time no s/s of pain or discomfort. pt is admitted to [facility] for opiate/etoh/benzo withdrawal/dependence last cows was 2 and last ciwa 1. pt is set to discharge today will assist pt in discharging and will continue to monitor pt for any changes
[2016-11-08] MEDS: FOLIC ACID 1 MG TABLET PO SCH (08:12)
[2016-11-08 08:13] VITALS: BP 119/77
[2016-11-08] MEDS: busPIRone 5 MG TABLET PO SCH (08:13)
[2016-11-08] MEDS: THIAMINE HCL 100 MG TABLET PO SCH (08:13)
[2016-11-08] MEDS: VENLAFAXINE XR 150 MG CAP.SR.24H PO SCH (08:13)
[2016-11-08] MEDS: GABAPENTIN 300 MG CAPSULE PO SCH (08:13)
[2016-11-08] MEDS: MULTIVITAMINS,THERAPEUTIC TABLET PO SCH (08:13)
[2016-11-08] MEDS: CLONIDINE HCL 0.1 MG TABLET PO SCH (08:13)
[2016-11-08] MEDS: NICOTINE 14 MG/24HR PATCH TD SCH (08:14)
[2016-11-08] MEDS ORDERED: Gabapentin PO (08:31)
[2016-11-08] MEDS ORDERED: Baclofen PO (08:31)
[2016-11-08] MEDS ORDERED: Nicotine TD (08:31)
[2016-11-08] MEDS ORDERED: DICY20TA28 PO (08:31)
[2016-11-08] MEDS ORDERED: Buspirone Hcl PO (08:31)
[2016-11-08] MEDS ORDERED: CLON0.1T14 PO (08:31)
[2016-11-08] MEDS ORDERED: Ibuprofen PO (08:31)
[2016-11-08] MEDS ORDERED: HYDR-3895 PO (08:31)
--- NOTE | 2016-11-08 09:50 | NUR ---
discharge note: pt left the unit in stable condition no s/s of pain, discomfort, or withdrawal symptoms. pt teaching administered and pt verbalized understanding. all personal belongings were returned. Pts V/S WNL. Pt will transferred to [facility] via private car
[2016-11-12 04:12] LABS: *BENZODIAZEPINES Positive (.); *CANNABINOID (THC) Positive (.); *CODEINE Positive (.); *HYDROMORPHONE Negative (Cutoff=300); *NORDIAZEPAM Negative (Cutoff=300); *OPIATES Positive ng/mL (Cutoff=300); *OXAZEPAM Positive (.)
== END 2016-11-08 09:50 | disposition other institution (70) | DRG 895 ==
LOC: SRC 16:11
PROVIDERS: ADMIT Internal Medicine; ATTEND Internal Medicine
PROC: HZ2ZZZZ Detoxification Services for Substance Abuse Treatment (ICD-10-PCS; principal; 2016-11-01)
PROC: HZ41ZZZ Group Counseling for Substance Abuse Treatment, Behavioral (ICD-10-PCS; 2016-11-03)
PROC: HZ31ZZZ Individual Counseling for Substance Abuse Treatment, Behavioral (ICD-10-PCS; 2016-11-04)
DX: F13.230 Sedative, hypnotic or anxiolytic dependence with withdrawal, uncomplicated (principal); E87.3 Alkalosis; F31.60 Bipolar disorder, current episode mixed, unspecified; F10.220 Alcohol dependence with intoxication, uncomplicated; Y90.9 Presence of alcohol in blood, level not specified; E86.0 Dehydration; E07.81 Sick-euthyroid syndrome; B19.20 Unspecified viral hepatitis C without hepatic coma; F17.210 Nicotine dependence, cigarettes, uncomplicated; F25.9 Schizoaffective disorder, unspecified; F90.9 Attention-deficit hyperactivity disorder, unspecified type; F41.9 Anxiety disorder, unspecified; F11.229 Opioid dependence with intoxication, unspecified; Z81.8 Family history of other mental and behavioral disorders; Z81.1 Family history of alcohol abuse and dependence; G47.00 Insomnia, unspecified
CPT/HCPCS: 36415; 70030-TC; 80307; 80346; 80349; 80361; 83735; 84100; 84443; 85025; 86580; 86592; 86705; 86803; 87340; 87521; 87806; A4663; G6040-TC; J3411

== ENCOUNTER 2016-12-01 20:51 | Emergency (ER) | payer BC, OTHER ==
[~2016-12-01] VITALS: Ht 180.3 cm; Wt 95.3 kg
[~2016-12-01 20:51] MED LIST: BENTYL20 M1 PO; Baclofen PO; Buspirone Hcl PO; CATAPRES0.1 MG PO; EFFEXOR XR150 MG PO; Gabapentin PO; HYDROXYZINE PAM25 M1 PO; Ibuprofen PO; Nicotine TD; ZYPREXA10 MG PO
--- NOTE | 2016-12-01 21:00 | NUR ---
Patient brought in by [facility] from [place] for ingesting 10 valium prior to arrival. Patient is A/Ox4, speaking clearly and ambulating with steady gait. No distress noted Dr Clement into eval patient.
--- NOTE | 2016-12-01 21:01 | NUR ---
Patient denies SI,SOB,N/v
--- NOTE | 2016-12-01 21:15 | NUR ---
Patient girlfriend at bedside. Patient waiitng for ride from friend for ride to get home
[2016-12-01 21:38] VITALS: BP 148/75; PULSE 100; RESP 18; O2SAT 98
--- NOTE | 2016-12-01 21:39 | NUR ---
Patient discharged to home in stable conditon with girlfriend taking Patient home. Written and verbal after care instructions given. Patient verbalizes understanding of instructions. Walked out of ER with steady gait with no distress noted
== END 2016-12-01 21:40 | disposition home or self-care (01) ==
LOC: ER 20:51
DX: T42.4X5A Adverse effect of benzodiazepines, initial encounter (principal); F10.20 Alcohol dependence, uncomplicated; F19.10 Other psychoactive substance abuse, uncomplicated; Z88.0 Allergy status to penicillin; Y92.89 Other specified places as the place of occurrence of the external cause
CPT/HCPCS: 99283; A4663

== ENCOUNTER 2017-06-26 16:26 | Inpatient (IN) | payer BC, OTHER ==
[~2017-06-26] VITALS: Ht 177.8 cm; Wt 93.0 kg
[~2017-06-26 16:26] MED LIST changes: -BENTYL20 M1 PO; -CATAPRES0.1 MG PO; +CLON0.1T14 PO; +DICY20TA28 PO; -EFFEXOR XR150 MG PO; +HYDR-3895 PO; -HYDROXYZINE PAM25 M1 PO; +OLAN10TA3 PO; +VENL150C2 PO; -ZYPREXA10 MG PO
--- NOTE | 2017-06-26 17:12 | NUR ---
PRE ADMISSION Pt 37 y/o male received in intake. Pt alert and oriented to name, place, and time. Perrla. Skin warm and dry to touch. Respirations even and unlabored. No hand tremors noted at this time. Pt slightly anxious during assessment. LL=816/97 P=99 R=18 O2=97%@RA T=98. Pt evaluated by MD. Pt states came from home. Explained unit rules to pt with acknowledgement. No distress noted at this time.
[2017-06-26] MEDS ORDERED: diphenhydrAMINE 50 MG CAPSULE PO PRN (17:45)
[2017-06-26] MEDS ORDERED: LOPERAMIDE HCL 2 MG CAPSULE PO PRN ×2 (17:45)
[2017-06-26] MEDS ORDERED: DIAZEPAM 5 MG TABLET PO PRN (17:45)
[2017-06-26] MEDS ORDERED: ONDANSETRON 4 MG/2 ML VIAL IM PRN (17:45)
[2017-06-26] MEDS ORDERED: DIAZEPAM 10 MG TABLET PO PRN ×2 (17:45)
[2017-06-26] MEDS ORDERED: HYDROXYZINE PAMOATE 25 MG CAPSULE PO PRN (17:45)
[2017-06-26] MEDS ORDERED: DICYCLOMINE HCL 20 MG TABLET PO PRN (17:45)
[2017-06-26] MEDS ORDERED: CLONIDINE HCL 0.1 MG TABLET PO PRN (17:45)
[2017-06-26] MEDS ORDERED: ACETAMINOPHEN 325 MG TABLET PO PRN (17:45)
[2017-06-26] MEDS ORDERED: MAGNESIUM HYDROXIDE 30 ML LIQUID UDC PO PRN (17:45)
[2017-06-26] MEDS ORDERED: METHOCARBAMOL 750 MG TABLET PO PRN (17:45)
[2017-06-26] MEDS ORDERED: ONDANSETRON ODT 4 MG TAB.RAPDIS SL PRN (17:45)
[2017-06-26] MEDS ORDERED: MAG HYDROX/AL HYDROX/SIMETH 30 ML LIQUID UDC PO PRN (17:45)
[2017-06-26] MEDS ORDERED: DOCUSATE SODIUM 250 MG CAPSULE PO PRN (17:45)
[2017-06-26] MEDS ORDERED: LORAZEPAM 2 MG/1 ML VIAL IM PRN (17:45)
[2017-06-26] MEDS ORDERED: BUPRENORPHINE HCL 2 MG TAB.SUBL SL PRN (17:45)
[2017-06-26] MEDS ORDERED: IBUPROFEN 600 MG TABLET PO PRN (17:45)
--- NOTE | 2017-06-26 18:00 | NUR ---
ADMISSION Pt 37 y/o male admitted for suboxone/ benzo dependence. Pt alert and oriented to name, place, and time. Perrla. Skin warm and dry to touch. Respirations even and unlabored. Pt with slight hand tremors noted. Pt slightly anxious during assessment. Pt states experiencing some sweats. VF=268/97 P=99 R=18 O2=97%@RA T=98. Pt evaluated by MD in intake. Pt states came from home. Pt states does not have PMD. Pt denies any seizure history. Oriented pt to unit and room. Skin clear. Pt denies any sz history. Pt states was taking zyprexa and effexor, but stopped taking 2 weeks ago, and does not want to continue taking them. cows=5 ciwa=4. No distress noted at this time. substance hx: - subuxone SL 8 mg daily x7 years. Last used 06/26/17 8mg - xanax po 6bars ( 11-12mg) daily x 3 months. Last used 06/26/17 1mg - valium po 80 mg daily x 9 months. Last used 06/25/17 80mg - heroin IV . Pt states heroin was inconsistant and was not able to provide quantity and frequency TX hx: -Donald=10/2016 - Peace by [id number] -Revive= 04/2017 Medical hx: Schizophrenia, Bipolar, ADHD
[2017-06-26 18:06] LABS: *AMPHETAMINE, URINE NEGATIVE (NEGATIVE); *BARBITURATE, URINE NEGATIVE (NEGATIVE); *CANNABINOID, URINE NEGATIVE (NEGATIVE); *COCCAINE, URINE NEGATIVE (NEGATIVE); *OPIATE, URINE NEGATIVE (NEGATIVE); *PHENCYCLIDINE SCREEN,URINE NEGATIVE (NEGATIVE)
[2017-06-26 18:43] LABS: BASOPHILS # (AUTO) 0.1 K/uL (0.0-8.0); BASOPHILS % (AUTO) 1.1 % (0.0-2.0); EOSINOPHILS # (AUTO) 0.2 K/uL (0.0-0.7); HEMATOCRIT 40.3 % (36.7-47.1); HEMOGLOBIN 13.8 g/dL (12.5-16.3); LYMPHOCYTES # (AUTO) 2.1 K/uL (20.0-40.0); MEAN CORPUSCULAR HEMOGLOBIN 29.9 uug (23.8-33.4); MEAN CORPUSCULAR HGB CONC 34 g/dL (32.5-36.3); MEAN CORPUSCULAR VOLUME 87.6 fL (73.0-96.2); MONOCYTES # (AUTO) 0.6 K/uL (2.0-10.0); NEUTROPHILS # (AUTO) 3.6 K/uL (1.8-8.9); NEUTROPHILS % (AUTO) 54.9 % (38.5-71.5); PLATELET COUNT (AUTO) 204 K/uL (152-348); WHITE BLOOD COUNT (AUTO) 6.6 K/uL (3.6-10.2)
[2017-06-26 19:01] LABS: BILIRUBIN,TOTAL 0.3 mg/dL (0.2-1.0); MAGNESIUM 1.8 mg/dL (1.8-2.4); POTASSIUM 3.6 mmol/L (3.5-5.1); TOTAL PROTEIN, SERUM 7.7 g/dL (6.4-8.2)
--- NOTE | 2017-06-26 19:05 | NUR ---
Start of Shift Patient Received. Patient is in activities room participating in group activities. Patient is a 37 year old male admitted on 06/26/17 for Opiate and Benzo Dependence under the care of Dr. Bell. Patient verbalizes allergies to PCN, wishes to be full code, following a Regular Diet, placed on Fall and Seizure precautions, and skin noted to be intact. Patients past medical history noted as Schizoaffective Disorder, Bipolar disorder, ADHD, No history of seizures noted. Per endorsement, patient will start phenobarbital taper at 2100. Last noted COWS 5 and CIWA 4. All needs attended to promptly. Will continue to monitor.
[2017-06-26 20:14] VITALS: BP 142/80
[2017-06-26] MEDS: GABAPENTIN 300 MG CAPSULE PO SCH (20:19)
[2017-06-26] MEDS ORDERED: PHENOBARBITAL 60 MG TABLET PO SCH (21:00)
[2017-06-27] VITALS (7 sets, daily range): BP systolic 109–148; BP diastolic 68–100
--- NOTE | 2017-06-27 02:33 | NUR ---
Behavioral Episode Patient noted awake, slurring words, and verbalizing increased anxiety, restlessness, noted with increased sweats. CIWA noted to be 25. PRN Valium offered and patient refused and stated "I dont want that. Im trying to get off of it. I want to take Pheno." Explained to patient taper protocol as well as PRN medications. Patient noted to refuse. CN made aware and at bedside. patient was again educated on risks and benefits of refusing PRN Valium. Patient verbalized "ill just have a seizure then." contacted MD currently awaiting orders. will continue to monitor.
--- NOTE | 2017-06-27 02:37 | NUR ---
Communication: Patient extremely agitated, throwing various items in his room and while in kitchen, screaming and cussing. Dr Bell contacted, and new order for Phenobarbital 120mg PO x1 now for CIWA 25. made aware that patient refuses PRN Valium after multiple attempts at education.
[2017-06-27] MEDS ORDERED: PHENOBARBITAL 60 MG TABLET PO ONE (02:45)
--- NOTE | 2017-06-27 02:45 | NUR ---
MD Communication/One time dose Relayed information to MD with new order for Phenobarbitol 120mg one time now. Medication given as ordered. Will continue to monitor.
--- NOTE | 2017-06-27 03:30 | NUR ---
One time dose Reassessment Patient noted in bed awake and continues to be restless but is able to verbalize "I feel much better than I did." Reassessment CIWA noted to be 13. One time dose of Phenobarbital noted to be effective. Will continue to monitor.
--- NOTE | 2017-06-27 04:19 | NUR ---
Behavioral Episode Patient noted on multiple occasions in the kitchen attempting to drink Coffee. Both primary nurse and CN educated patient on risks of drinking coffee will increased risk of seizures, increase anxiety and insomnia. Patient noted to be argumentative. Patient agreed to not drink coffee. Patient then noted to go into his room and turn on the oxygen to 15 liters. MANAGER ER instructed patient not to touch oxygen and patient verbalized understanding. Patient then noted again in the kitchen attempting to drink more coffee. Redirected patient and patient agreed to drink hot decaf tea. Will continue to monitor.
--- NOTE | 2017-06-27 07:08 | NUR ---
Start of Shift Endorsement received from nightshift nurse. Pt is a 37 y/o male admitted for Suboxone, Xanax, Valium and Heroin dependence. PT has been placed on a 6 day Phenobarbital and 5 day Subutex taper. Pt reports hx of seizures. PT is experiencing moderate to severe withdrawals AEB CIWA 13 and COWS 2 at 0430. Pt received a one time dose of phenobarbital during nightshift per Dr. Bell. VS VS WNL. Full Code. PT is alert and oriented x4. Pt is in STABLE condition at this time. Remains compliant with medication and diet regimen. All needs have been met, All safety measures in place per hospital policy. Bed in lowest position, side rails up x2, call-light within reach. Will continue to monitor
--- NOTE | 2017-06-27 07:24 | NUR ---
End of Shift Patient is in bed sleeping. Breathing even and non labored. Patient is a 37 year old male admitted on 06/26/17 for Opiate and Benzo Dependence under the care of Dr. Bell. Patient verbalizes allergies to PCN, wishes to be full code, following a Regular Diet, placed on Fall and Seizure precautions, and skin noted to be intact. Patients past medical history noted as Schizoaffective Disorder, Bipolar disorder, ADHD, No history of seizures noted. Patient was noted with several episodes of behavior in requesting medications for increased anxiety but then noted to be drinking coffee after medications were given. Onetime dose of Phenobarbital 120mg administered for CIWA of 25 with medications noted to be effective. Last noted CIWA 13 and COWS 2. All needs attended to promptly. Will endorse to continue plan of care as ordered.
[2017-06-27] MEDS: GABAPENTIN 300 MG CAPSULE PO SCH ×4 (08:30→20:06)
[2017-06-27] MEDS: BUPRENORPHINE HCL 2 MG TAB.SUBL SL SCH ×4 (08:30→20:05)
[2017-06-27] MEDS ORDERED: TUBERCULIN,PURIF.PROT.DERIV. 5 TU/0.1 ML TEST ID ONE (09:00)
[2017-06-27] MEDS ORDERED: PHENOBARBITAL 60 MG TABLET PO SCH ×2 (09:00→23:00)
[2017-06-27] MEDS: PHENOBARBITAL 60 MG TABLET PO SCH ×3 (12:02→20:05)
[2017-06-27] MEDS ORDERED: QUETIAPINE FUMARATE 25 MG TABLET PO PRN (15:30)
--- NOTE | 2017-06-27 18:50 | NUR ---
End of Shift Endorsement given to nightshift nurse. Pt is a 37 y/o male admitted for Suboxone, Xanax, Valium and Heroin dependence. PT has been placed on a 6 day Phenobarbital and 5 day Subutex taper. PT is experiencing moderate to severe withdrawals AEB CIWA 9 and COWS 9 at 1600. Pt did not receive any PRN medications. Dr. Bell has modified the pt's taper to 120mg Phenobarbital for 3 doses today. Educated pt on diet and medication regimen. Intake: 1850ml, Void x4, BM x0. VS WNL. Full Code. PT is alert and oriented x4. Pt is in STABLE condition at this time. Remains compliant with medication and diet regimen. All needs have been met, All safety measures in place per hospital policy. Bed in lowest position, side rails up x2, call-light within reach. Will continue to monitor
--- NOTE | 2017-06-27 19:30 | NUR ---
Start of Shift Note: Report received from day shift nurse. Pt is 37M, admitted for Suboxone/Benzo Dependence on 06/26/17. Pt was at group activity upon start of shift. Pt is AOx4 without s/s of acute distress noted. Respirations even and unlabored. Pt is full code, on regular diet, and on fall/seizure precautions. Pt noted with allergy to Penicillins. Pt reports hx of Schizophrenia, Bipolar, and ADHD. Pt is currently on Phenobarbital and Subutex tapers to manage withdrawal symptoms. Per day shift nurse, last COWS was 9 and last CIWA was 9 day 1600. Bed in lowest position. Side rails up x2. Call light functioning and within reach. All needs attended and met. Will continue to monitor.
--- NOTE | 2017-06-27 23:10 | NUR ---
Phenobarbital ONE TIME: New order from MD to given 60mg Phenobarbital ONE TIME. Order noted and carried out. Will continue to monitor.
[2017-06-27] MEDS ORDERED: PHENOBARBITAL 60 MG TABLET ONE (23:25)
[2017-06-28] VITALS: BP 135/96
--- NOTE | 2017-06-28 04:00 | NUR ---
CIWA, COWS Deferred and Vitals Refused Pt in bed with eyes closed. Pt refused vitals to be taken at this time. Respirations even and unlabored. RR: 16. Call light functioning and within reach. All needs attended and met. Will continue to monitor.
[2017-06-28 06:20] VITALS: BP 128/89
[2017-06-28] MEDS: LORAZEPAM 1 MG TABLET PO PRN ×4 (06:24→22:45)
--- NOTE | 2017-06-28 06:25 | NUR ---
Ativan PRN: Pt c/o severe anxiety/agitation. Pharmacological interventions ineffective. Pt requested medication to help with anxiety. 2mg Ativan PRN given as ordered. Allowed pt to verbalize feelings, support given to pt. Will continue to monitor.
--- NOTE | 2017-06-28 07:03 | NUR ---
End of Shift Note: Pt is 37M, admitted for Suboxone/Benzo Dependence on 06/26/17. Pt is AOx4 without s/s of acute distress noted. Respirations even and unlabored. Pt is full code, on regular diet, and on fall/seizure precautions. Pt noted with allergy to Penicillins. Pt reports hx of Schizophrenia, Bipolar, and ADHD. Pt is currently on Phenobarbital and Subutex tapers to manage withdrawal symptoms. Last COWS was 11 and CIWA 10 at 0615. Pt c/o anxiety/agitation during the shift. PRN Ativan given as ordered. Pt slept for 5 hours. Bed in lowest position. Side rails up x2. Call light functioning and within reach. All needs attended and met. Will continue to monitor.
--- NOTE | 2017-06-28 07:20 | NUR ---
Start of Shift Endorsement received from nightshift nurse. Pt is a 37 y/o male admitted for Suboxone, Xanax, Valium and Heroin dependence. PT has been placed on a 6 day Phenobarbital and 5 day Subutex taper. Pt reports hx of seizures. PT is experiencing moderate to severe withdrawals AEB CIWA 10 and COWS 11 at 0615. Pt received a one time dose of phenobarbital 60mg during nightshift per Dr. Bell. Pt also received PRN Ativan 2mg. VS WNL. Full Code. PT is alert and oriented x4. Pt is in STABLE condition at this time. Remains compliant with medication and diet regimen. All needs have been met, All safety measures in place per hospital policy. Bed in lowest position, side rails up x2, call-light within reach. Will continue to monitor
[2017-06-28 08:00] VITALS: BP 130/93
[2017-06-28] MEDS: GABAPENTIN 300 MG CAPSULE PO SCH ×4 (08:33→21:21)
[2017-06-28] MEDS: PHENOBARBITAL 60 MG TABLET PO SCH ×3 (08:33→21:21)
[2017-06-28] MEDS: BUPRENORPHINE HCL 2 MG TAB.SUBL SL SCH ×3 (08:34→21:21)
[2017-06-28] MEDS ORDERED: PHENOBARBITAL 60 MG TABLET PO SCH (09:00)
[2017-06-28 10:07] LABS: HEPATITIS B SURFACE AG Negative (Negative)
--- NOTE | 2017-06-28 10:30 | NUR ---
1:1 Pt has been placed on 1:1 due to unsteady gait and for safety reasons. MD has been notified.
--- NOTE | 2017-06-28 11:56 | NUR ---
PRN Seroquel Pt has been administered PRN Seroquel. Educated on S/E of medications.
[2017-06-28 12:00] VITALS: BP 115/72
--- NOTE | 2017-06-28 12:09 | NUR ---
Pt continues to display med seeking behavior. Pt refuses to stop drinking caffeinated drinks despite encouraging him frequently to cut down on caffeine to allow him to relax and sleep
[2017-06-28 16:04] VITALS: BP 130/93
--- NOTE | 2017-06-28 17:05 | NUR ---
PRN Ativan Administered PRN Ativan 2mg for increased agitation per Dr. Bell.
--- NOTE | 2017-06-28 17:55 | NUR ---
Medication Re-assessment Pt reports decrease in anxiety and agitation. Medication is effective.
--- NOTE | 2017-06-28 19:00 | NUR ---
End of Shift Endorsement given to nightshift nurse. Pt is a 37 y/o male admitted for Suboxone, Xanax, Valium and Heroin dependence. PT has been placed on a 6 day Phenobarbital and 5 day Subutex taper. PT is experiencing moderate to severe withdrawals AEB CIWA 11 and COWS 10 at 1600. Pt received PRN Ativan x2 and Seroquel for withdrawal symptoms. . Educated pt on diet and medication regimen. Intake: 1750ml, Void x4, BM x1. VS WNL. Full Code. PT is alert and oriented x4. Pt is in STABLE condition at this time. Remains compliant with medication and diet regimen. All needs have been met, All safety measures in place per hospital policy. Bed in lowest position, side rails up x2, call-light within reach. Will continue to monitor
--- NOTE | 2017-06-28 19:05 | NUR ---
Start of shift note Received report from day shift nurse. Pt is a 37 yo male, A+Ox4, presenting to [facility] for Opiate/Benzo dependence. Pt has Allergies to PCN, is on Full code status, and on Regular diet. Pt is on Fall and Seizure precautions. Pt has HX of Schizphrenia, Bipolar, and ADHD. Pt is on 6 day Phenobarbital and 5 day Subutex taper, tolerated well. No s/s of distress noted at this time. Respirations even and unlabored. Will continue to monitor. Addendum: 06/29/17 at 0225 by ANA MARÍA JC LVN Pt is on 1:1 observation for unsteady gait.
[2017-06-28 20:19] VITALS: BP 154/89
--- NOTE | 2017-06-28 22:45 | NUR ---
PRN Ativan 2mg Pt c/o anxiety and requested for PRN Ativan 2mg. Medication given and tolerated well. Will reassess within 1 HR. Will continue to monitor.
--- NOTE | 2017-06-28 23:40 | NUR ---
PRN Ativan 2mg Reassessment Medication effective. Pt expresses reduction in anxiety. No s/s of ASE/distress noted at this time. Respirations even and unlabored. Will continue to monitor.
[2017-06-29] VITALS (7 sets, daily range): BP systolic 98–155; BP diastolic 68–100
[2017-06-29] MEDS: LORAZEPAM 1 MG TABLET PO PRN (06:09)
--- NOTE | 2017-06-29 06:11 | NUR ---
PRN Ativan 2mg Pt c/o agitation/anxiety and requested for PRN Ativan 2mg. Medication given and tolerated well. Will reassess within 1 HR. Will continue to monitor.
--- NOTE | 2017-06-29 07:00 | NUR ---
End of shift note Pt is a 37 yo male, A+Ox4, presenting to [facility] for Opiate/Benzo dependence. Pt has Allergies to PCN, is on Full code status, and on Regular diet. Pt is on Fall and Seizure precautions. Pt has HX of Schizophrenia, Bipolar, and ADHD. Pt is on 6 day Phenobarbital and 5 day Subutex taper, tolerated well. Pt was given PRN Ativan 2mg @2245 and @0611. Pt slept for a total of 6 HRS. Last COWS: 4 and Last CIWA: 3 @0400. No s/s of distress noted at this time. Respirations even and unlabored. Will endorse to day shift nurse.
--- NOTE | 2017-06-29 07:14 | NUR ---
Start of shift; Received report from night nurse. Patient is a 37 year old male admitted on 06/26/17 for Opiate, benzodiazepine dependence. Patient was placed on a 6 day phenobarbital taper and 5 day Subutex taper. Patient noted to be allergic to penicillin. Patient is on full code status, and on a regular diet. Patient is on a 1:1 supervision for unsteady gait. Patient recorded history of schizophrenia, bipolar disorder and ADHD. Patient received PRN Ativan last night noted to be effective. Patient is on fall and seizure precaution. Per endorsement patient had behavioral and medication seeking tendencies. Will closely monitor patient.
[2017-06-29] MEDS: GABAPENTIN 300 MG CAPSULE PO SCH ×4 (08:10→20:46)
[2017-06-29] MEDS: PHENOBARBITAL 60 MG TABLET PO SCH ×3 (08:10→20:46)
[2017-06-29] MEDS: BUPRENORPHINE HCL 2 MG TAB.SUBL SL SCH ×2 (08:10→20:46)
--- NOTE | 2017-06-29 08:26 | NUR ---
Patient education; Morning medications given to patient. Patient attempted to hide medications in the bathroom. Educated patient regarding the importance of compliance to medication regime and consequences of non compliance to unit rules and protocols, patient verbalized understanding. Witnessed patient take medications and watched Subutex dissolve properly. Thorough mouth inspection conducted. Medications were completely swallowed and Subutex completely dissolved. Patient remained on 1:1 supervision. Will continue to monitor patient.
[2017-06-29] MEDS ORDERED: LORAZEPAM 1 MG TABLET PO SCH (12:00)
--- NOTE | 2017-06-29 12:19 | NUR ---
order; Patient is AOX4. Patient appears very anxious, patient pacing back and forth in the hallway with current CIWA score of 6. Patient was seen and evaluated by Dr. Bell. ordered Ativan 2mg PO for anxiety. Medication given as ordered. Will closely monitor patient.
--- NOTE | 2017-06-29 13:19 | NUR ---
Re-assessment; Patient's is calm at this time, current CIWA of 4. One time dose of Ativan noted to be effective.
--- NOTE | 2017-06-29 15:25 | NUR ---
D/C 1:1 order; MD on unit. Patient was seen and evaluated by MD. Per MD discontinue 1:1 sitter, patient's gait is stable. Will closely monitor patient.
--- NOTE | 2017-06-29 18:13 | NUR ---
Start of shift note; Patient is AOX4. Patient is a 37 year old male admitted on 06/26/17 for Opiate, benzodiazepine dependence. Patient was placed on a 6 day phenobarbital taper and 5 day Subutex taper. Patient noted to be allergic to penicillin. Patient is on full code status, and on a regular diet. Patient recorded history of schizophrenia, bipolar disorder and ADHD. Patient 's last COWS is 4 and last CIWA is 3 at 1600. Patient remained compliant with treatment plan and medication regime. All safety measures secured. Met all needs. Addendum: 06/29/17 at 1815 by ROXANE KELLY LVN CLARIFICATION; END OF SHIFT NOTE.
--- NOTE | 2017-06-29 19:15 | NUR ---
Start of Shift Note: Patient is a 37 y.o male admitted on 06/26/17 for Opiate and Benzo dependence. Patient has PMHx of Schizophrenia, Bipolar disorder & ADHD. Patient is on a regular diet with allergies to Penicillin. Full Code status. Seizure and Fall precaution noted. Skin intact. Patient is on a 6-day Phenobarbital and 5-day Subutex taper and tolerating well. No adverse reactions noted. Last COWS 4 CIWA 3 noted. Patient received a one time dose of Ativan during day shift. No PRN medications given. Patient is alert & oriented x4. No shortness of breath noted. Respiration even & unlabored. Abdomen soft & non-distended. No nausea/vomiting noted. Patient observed with mild anxiety and mild agitation. No hand tremors noted. Patient verbalized body aches & headache. No facial grimacing noted. Patient denies any hallucinations at this time. Safety precautions are in place. Bed locked in lowest position. Both side rails up. Call light within pts reach. Will continue to monitor patient.
[2017-06-29] MEDS: BACLOFEN 10 MG TABLET PO SCH (21:00)
--- NOTE | 2017-06-29 21:00 | NUR ---
RN NOTE: Scheduled medications given. Patient attempted to spit out administered Subutex on the floor and caught stepping on it to hide the medication. Pt was asked why he spitted out his medication. Pt stated " I didn't know that it fell on the floor, I didn't spit it out. Educated patient the importance of compliance of medication and consequences of not following unit rules & protocols. Patient verbalized understanding. Witnessed patient taking the medication and placed the Subutex under his tongue. Watched patient carefully until medication dissolved. Charge Nurse and administration made aware. Will continue to monitor patient.
[2017-06-29] MEDS: CLONIDINE HCL 0.1 MG TABLET PO SCH (21:10)
--- NOTE | 2017-06-29 23:16 | NUR ---
PRN Clonidine Patient appears with anxiety & agitation. Vitals taken B/P 155/95, HR 98 noted. PRN Clonidine administered as ordered. Will continue to monitor patient.
--- NOTE | 2017-06-30 00:16 | NUR ---
PRN Reassessment Patient asleep in bed and appears calm & comfortable. Safety measures in place. Will continue to monitor patient.
--- NOTE | 2017-06-30 07:08 | NUR ---
End of Shift Note: Patient continues on his Phenobarbital and Subutex taper and tolerating well. No adverse reaction noted. Last COWS 6 CIWA 8 Pt received PRN Clonidine and was effective. Closely monitor symptoms of withdrawal. Vitals monitored closely and noted within normal limits. Patient observed to be very manipulative and med seeking. Patient remained stable throughout my shift. Patient shows no s/s of distress. Patient slept for a total of 6 hour. Fluid intake 1084ml. Encourage pt to increase fluid intake. Voided 3x with no bowel movement. All needs attended & met. Safety measures in place. Will continue to monitor patient.
--- NOTE | 2017-06-30 07:50 | NUR ---
START OF SHIFT NOTE Received report from night nurse, 37 year old male admitted for Opiate, benzo dependence. Patient cont on a 6 day phenobarbital taper and 5 day Subutex taper tolerating well. Per endorsement pt received PRN med, last CIWA score 8, COWS was 6,slept for 6 hours. Patient received awake, alert and oriented x4. Patient was educated regarding plan of care for the day and medication regimen. Safety measures in place. call light with in reach. Will continue to monitor.
[2017-06-30 08:00] VITALS: BP 111/65
[2017-06-30] MEDS: GABAPENTIN 300 MG CAPSULE PO SCH ×3 (08:26→20:24)
[2017-06-30] MEDS: PHENOBARBITAL 60 MG TABLET PO SCH ×3 (08:27→20:24)
[2017-06-30] MEDS: BUPRENORPHINE HCL 2 MG TAB.SUBL SL SCH ×2 (08:27→20:24)
[2017-06-30] MEDS: BACLOFEN 10 MG TABLET PO SCH (08:29)
[2017-06-30] MEDS: CLONIDINE HCL 0.1 MG TABLET PO SCH ×2 (08:29→14:32)
--- NOTE | 2017-06-30 09:00 | NUR ---
REFUSED MEDS Patient refused his scheduled morning Clonidine and Baclofen offered x3 risk and benefits explained, pt verbalized understanding, still refused. notified. Will cont to monitor.
--- NOTE | 2017-06-30 11:04 | NUR ---
Patient appears sedated, ambulates the hallways with an unsteady gait, spilling his coffee multiple times, slurring his words and has eyes closed while nodding off when speaking to staff. Initiated 1:1 for client safety, client got agitated and began yelling and cursing at staff, denying that he is sedated or unsteady, patient refuses to be on a 1:1. aware. Debubblizer Jose spoke with client. Will continue to monitor closely.
[2017-06-30 12:00] VITALS: BP 122/87
--- NOTE | 2017-06-30 14:20 | NUR ---
REFUSED MED Patient refused his scheduled afternoon Clonidine, offered x3 risk and benefits explained. notified.
--- NOTE | 2017-06-30 15:12 | NUR ---
Therapist prompted client about group times. Client stated he will attend all groups today.
[2017-06-30 16:00] VITALS: BP 137/79
[2017-06-30] MEDS: MIRALAX 17 GM POWD.PACK PO PRN (17:15)
--- NOTE | 2017-06-30 17:15 | NUR ---
PRN MIRALAX Patient c/o of constipation PRN Miralax given as ordered.Will cont to monitor.
--- NOTE | 2017-06-30 18:15 | NUR ---
MIRALAX REASSESSMENT Patient states Miralax was ineffective at this time.
--- NOTE | 2017-06-30 19:19 | NUR ---
END OF SHIFT NOTE Patient cont on 6 days Phenobarbital/5 days Subutex taper tolerating well. Patient received PRN Miralax for constipation, will endorse to night nurse to followup. Vital signs WNL. Last CIWA score noted 3 and COWS score noted 3 at 1600. All safety measures in place. Patient endorse to night nurse in stable condition.
--- NOTE | 2017-06-30 19:30 | NUR ---
PRN COLACE ADMINISTRATION Pt reports constipation. Pt reports he does not remember his last BM and states he normally goes daily. Pt administered Miralax during day shift, but no BM. Safety measures in place. Call light within reach. Will continue to monitor. Addendum: 06/30/17 at 2152 by YAIMA KIM RN WRONG TIME ADMINISTRATION, ADMINISTERED AT 2023.
--- NOTE | 2017-06-30 19:30 | NUR ---
START OF SHIFT Pt is a 37 y/o male admitted on 06/26/17 for benzo and opiate dependence. Pt was dependent on Suboxone, Xanax, Valium and IV heroin. Pt is allergic to PNC, full code, regular diet and on fall/seizure precautions. Pt denies history of seizures, reports PMH of schizophrenia, bipolar disorder and ADHD. Pt is on a 6 day Phenobarbital and 5 day Subutex taper, tolerating well. Last CIWA 3 and COWS 3 and PRN Miralax administered during day shift. Upon assessment pt presents with anxiety, agitation, restlesssness, inability to sit still, flushed skin, mild sweats, headache, tactile disturbances, enlarged pupils, increased HR, constipation, difficulty sleeping, anhedonia and dysphoria. Medications due. Denies N/V/D. Denies chest pain or SOB. Respirations even and unlabored. Safety measures in place. Call light within reach. Will continue to monitor.
[2017-06-30 20:00] VITALS: BP 139/84
[2017-06-30] MEDS: OXCARBAZEPINE 150 MG TABLET PO SCH (20:24)
[2017-06-30] MEDS: CLONIDINE HCL 0.2 MG TABLET PO SCH (20:25)
--- NOTE | 2017-06-30 21:24 | NUR ---
PRN COLACE REASSESSMENT Pt denies having BM at this time. Will continue to monitor.
[2017-07-01] VITALS: BP 131/82
--- NOTE | 2017-07-01 04:00 | NUR ---
COWS/CIWA DEFERRED AND VITALS REFUSED Pt laying in bed with eyes closed, COWS/CIWA deferred, to be assessed when pt is awake per orders. Vitals refused. Respirations 16, even and unlabored. Safety measures in place. Call light within reach. Will continue to monitor.
--- NOTE | 2017-07-01 07:15 | NUR ---
END OF SHIFT Pt is a 37 y/o male admitted on 06/26/17 for benzo and opiate dependence. Pt was dependent on Suboxone, Xanax, Valium and IV heroin. Pt is allergic to PNC, full code, regular diet and on fall/seizure precautions. Pt denies history of seizures, reports PMH of schizophrenia, bipolar disorder and ADHD. Pt is on a 6 day Phenobarbital and 5 day Subutex taper, tolerating well. Pt presented with anxiety, agitation, restlesssness, inability to sit still, flushed skin, mild sweats, headache, tactile disturbances, enlarged pupils, increased HR, constipation, body aches, difficulty sleeping, anhedonia and dysphoria. Scheduled medications and PRN Colace administered, effective in S/S of withdrawal AEB COWS 11 CIWA 13 lowered to COWS 7 CIWA 8 during shift. Pt slept 5 hours. Intake 725 ml, void x 3, stool x 1. Safety measures in place. Call light within reach. Pts needs have been met. Endorsed to day shift nurse.
--- NOTE | 2017-07-01 07:45 | NUR ---
START OF SHIFT RECEIVED PT A/O X4, WALKING AROUND THE UNIT. RESPIRATIONS EVEN AND UNLABORED. PT APPEARS TO BE ANXIOUS AND IRRITABLE. PT REPORTS HAVING ANXIETY, BODY ACHES, SOME SWEATING, CHILLS. DENIES HALLUCINATIONS, SI/HI. PT REQUESTED TO HAVE AM MEDICATIONS SOON POSSIBLE. ENCOURAGED PT TO CONSUME MORE FLUIDS TO FACILITATE IN DETOX PROCESS. BED IS IN LOWEST POSITION AND SIDE RAILS UP X2, CALL LIGHT WITHIN REACH. INSTRUCTED PT TO USE CALL LIGHT IF NEEDED. SZ AND FALL PRECAUTIONS TAKEN. WILL CONTINUE TO MONITOR AND PROVIDE SUPPORT.
[2017-07-01 08:00] VITALS: BP 130/80
[2017-07-01] MEDS: CLONIDINE HCL 0.1 MG TABLET PO SCH ×2 (08:26→14:25)
--- NOTE | 2017-07-01 08:26 | NUR ---
PT REFUSED SCHEDULED CLONIDINE 0.1 MG. DESPITE EDUCATION ON BENEFITS ON S/S OF W/D. WILL CONTINUE TO MONITOR.
[2017-07-01] MEDS: PHENOBARBITAL 60 MG TABLET PO SCH ×2 (08:27→20:16)
[2017-07-01] MEDS: OXCARBAZEPINE 150 MG TABLET PO SCH (08:27)
[2017-07-01] MEDS: GABAPENTIN 300 MG CAPSULE PO SCH ×3 (08:27→20:16)
[2017-07-01] MEDS ORDERED: BUPRENORPHINE HCL 2 MG TAB.SUBL SL SCH ×2 (09:00→21:00)
--- NOTE | 2017-07-01 11:46 | NUR ---
Therapist prompted client about group times. Client stated he would attend all groups today.
[2017-07-01 12:00] VITALS: BP 117/83
[2017-07-01] MEDS ORDERED: KETOROLAC TROMETHAMINE 30 MG INJ IM PRN (13:15)
[2017-07-01] MEDS: OSELTAMIVIR PHOSPHATE 75 MG CAPSULE PO SCH (14:00)
--- NOTE | 2017-07-01 14:24 | NUR ---
PT REFUSED TAMIFLU 75 MG PO DESPITE HAVING RISKS AND BENEFITS EXPLAINED. WILL CONTINUE TO MONITOR.
[2017-07-01] MEDS ORDERED: OXCARBAZEPINE 150 MG TABLET PO SCH (15:00)
[2017-07-01 16:00] VITALS: BP 122/92
--- NOTE | 2017-07-01 19:26 | NUR ---
END OF SHIFT PT IS A/O X4. RESPIRATIONS EVEN AND UNLABORED. PT APPEARED TO BE AGITATED AND IRRITABLE THROUGHOUT MOST OF THE DAY. PT REPORTS HAVING ANXIETY, BODY ACHES, SOME SWEATING, AND CHILLS. DENIES HALLUCINATIONS AND SI/HI. PT REFUSED SCHEDULED MORNING CLONIDINE AND TAMIFLU MEDICATIONS DURING SHIFT DESPITE HAVING THE RISKS AND BENEFITS EXPLAINED. LAST COWS 4 AND CIWA 3. ENCOURAGED PT TO CONSUME MORE FLUIDS TO FACILITATE IN DETOX PROCESS. BED IS IN LOWEST POSITION AND SIDE RAILS UP X2, CALL LIGHT WITHIN REACH. SZ AND FALL PRECAUTIONS TAKEN. WILL GIVE ALL ENDORSEMENT AND PERTINENT DATA TO COMPUTER NETWORK SUPPORT SPECIALIST NURSE.
--- NOTE | 2017-07-01 19:30 | NUR ---
START OF SHIFT Pt is a 37 y/o male admitted on 06/26/17 for benzo and opiate dependence. Pt was dependent on Suboxone, Xanax, Valium and IV heroin. Pt is allergic to PNC, full code, regular diet and on fall/seizure precautions. Pt denies history of seizures, reports PMH of schizophrenia, bipolar disorder and ADHD. Pt is on a Phenobarbital and Subutex taper, tolerating well. Last CIWA 3 and COWS 4 and no PRNs administered during day shift. Upon assessment pt presents with anxiety, agitation, restlesssness, inability to sit still, flushed skin, depression, mild sweats, headache, tactile disturbances, enlarged pupils, increased HR, difficulty sleeping, anhedonia and dysphoria. Medications due. Denies N/V/D. Denies chest pain or SOB. Respirations even and unlabored. Safety measures in place. Call light within reach. Will continue to monitor.
[2017-07-01 20:00] VITALS: BP 111/87
[2017-07-01] MEDS: OXCARBAZEPINE 300 MG TABLET PO SCH (20:16)
--- NOTE | 2017-07-01 20:16 | NUR ---
PRN ROBAXIN ADMINISTRATION Pt reports body aches 01/14. Safety measures in place. Call light within reach. Will continue to monitor.
[2017-07-01] MEDS: CLONIDINE HCL 0.2 MG TABLET PO SCH (20:17)
--- NOTE | 2017-07-01 21:16 | NUR ---
SUSAN VELASQUEZ REASSESSMENT Pt reports mild improvement in body aches to 5/10. Safety measures in place. Call light within reach. Will continue to monitor.
--- NOTE | 2017-07-01 22:00 | NUR ---
NURSING NOTE Pt seen in kitchen potentially passing notes with another patient. Room search initiated, papers with phone numbers found in patients room and were confiscated. Pt presented with increased agitation, educated pt about rules and expectations of the unit, encouraged pt to use relaxation techniques. Pt compliant.
--- NOTE | 2017-07-02 | NUR ---
COWS/CIWA DEFERRED AND VITALS REFUSED Pt is laying in bed with eyes closed, COWS/CIWA deferred, to be assessed when pt is awake per orders. Vitals refused. Respirations 16, even and unlabored. Safety measures in place. Call light within reach. Will continue to monitor.
[2017-07-02 04:00] VITALS: BP 108/76
--- NOTE | 2017-07-02 07:17 | NUR ---
END OF SHIFT Pt is a 37 y/o male admitted on 06/26/17 for benzo and opiate dependence. Pt was dependent on Suboxone, Xanax, Valium and IV heroin. Pt is allergic to PNC, full code, regular diet and on fall/seizure precautions. Pt denies history of seizures, reports PMH of schizophrenia, bipolar disorder and ADHD. Pt is on a Phenobarbital and Subutex taper, tolerating well. Pt presented with anxiety, agitation, restlesssness, inability to sit still, flushed skin, depression, mild sweats, headache, body aches, tactile disturbances, enlarged pupils, increased HR, difficulty sleeping, anhedonia and dysphoria. Scheduled medications and PRN Robaxin administered, effective in S/S of withdrawal AEB COWS 13 CIWA 13 lowered to COWS 9 CIWA 7 during shift. During shift, a room search was done d/t suspicious activity, papers with phone numbers were found and confiscated. Pt was educated about unit rules and expectations, pt verbalized understanding. Pt slept 5 hours intermittently. Intake 800 ml, void x 2, stool x 0. Safety measures in place. Call light within reach. Pts needs have been met. Endorsed to day shift nurse.
[2017-07-02 08:00] VITALS: BP 143/80
--- NOTE | 2017-07-02 08:00 | NUR ---
Nursing notes: Received pt on hallway admit for supervise withdraw from benzo and bupremophco, pt is anxious, skin flush, no tremors noted, pt is asking for meds will administered am meds now, pt verbalizing not geraldo to sleep and that he feels anxious was refer to .
[2017-07-02] MEDS: GABAPENTIN 300 MG CAPSULE PO SCH ×3 (08:08→20:21)
[2017-07-02] MEDS: OSELTAMIVIR PHOSPHATE 75 MG CAPSULE PO SCH ×2 (08:09→08:14)
[2017-07-02] MEDS: OXCARBAZEPINE 300 MG TABLET PO SCH ×2 (08:09→20:21)
[2017-07-02] MEDS: CLONIDINE HCL 0.1 MG TABLET PO SCH ×2 (08:09→14:06)
[2017-07-02] MEDS ORDERED: BUPRENORPHINE HCL 2 MG TAB.SUBL SL SCH (09:00)
[2017-07-02] MEDS ORDERED: PHENOBARBITAL 60 MG TABLET PO SCH (09:00)
[2017-07-02] MEDS ORDERED: BUPRENORPHINE HCL 2 MG TAB.SUBL SL ONE (09:00)
--- NOTE | 2017-07-02 10:16 | NUR ---
Therapist prompted client about group times. Client stated he would attend all groups today.
[2017-07-02] MEDS ORDERED: LORAZEPAM 1 MG TABLET PO ONE (11:15)
--- NOTE | 2017-07-02 12:00 | NUR ---
nursing notes: pt was seen by today and orders for 1 mg po ativan noted and given as per orders, pt claims that md did adjust to his meds, but md has not change any of his meds yet, and that was refer to pt.
[2017-07-02 12:24] VITALS: BP 128/64
--- NOTE | 2017-07-02 13:48 | NUR ---
Try to reasses ativan 1 mg po given earlier, pt said no still feel same, pt is flush, anxious, and not feeling good, pt most of time in patio smoking comes to NS only when wants meds.
[2017-07-02] MEDS ORDERED: OXCA300T4 PO (14:12)
[2017-07-02] MEDS ORDERED: DIPH50CA37 PO (14:12)
[2017-07-02] MEDS ORDERED: DICY20TA28 PO (14:12)
[2017-07-02] MEDS ORDERED: QUET25TA PO (14:12)
[2017-07-02] MEDS ORDERED: CLON0.1T14 PO (14:12)
[2017-07-02] MEDS ORDERED: HYDR-3895 PO (14:12)
[2017-07-02] MEDS ORDERED: METH-406 PO (14:12)
[2017-07-02] MEDS ORDERED: GABA-534 PO (14:12)
[2017-07-02] MEDS ORDERED: IBUP-1955 PO (14:12)
[2017-07-02] MEDS: MIRALAX 17 GM POWD.PACK PO PRN (16:37)
--- NOTE | 2017-07-02 16:40 | NUR ---
PT C/O CONSTIPATION MEDICATED WITH MIRALAX, ENCOURAGE POS FLUIDS.
[2017-07-02 16:42] VITALS: BP 126/83
--- NOTE | 2017-07-02 18:05 | NUR ---
END NURSES NOTED: PT IS PACING ON HALLWAY, ASKING FOR MEDS, AND THAT NOTHING HELP HIM, MOST OF TIME AT PATIO, ATTENDED TO GROUP TODAY, WILL CONTINUE MONITORING HIM, AND MAYBE WILL BE DC TOMORROW.
--- NOTE | 2017-07-02 19:30 | NUR ---
START OF SHIFT Pt is a 37 y/o male admitted on 06/26/17 for benzo and opiate dependence. Pt was dependent on Suboxone, Xanax, Valium and IV heroin. Pt is allergic to PNC, full code, regular diet and on fall/seizure precautions. Pt denies history of seizures, reports PMH of schizophrenia, bipolar disorder and ADHD. Pt finished a Phenobarbital and Subutex taper and is scheduled to be d/c tomorrow morning. Last CIWA 9 and COWS 10 and PRN Miralax administered during day shift. Upon assessment pt presents with anxiety, agitation, restlesssness, inability to sit still, depression, mild sweats, headache, body aches, tactile disturbances, enlarged pupils, increased HR and BP, difficulty sleeping, anhedonia and dysphoria. Medications due. Denies N/V/D. Denies chest pain or SOB. Respirations even and unlabored. Safety measures in place. Call light within reach. Will continue to monitor.
[2017-07-02 20:00] VITALS: BP 142/73
[2017-07-02] MEDS: CLONIDINE HCL 0.2 MG TABLET PO SCH (21:10)
[2017-07-03] VITALS: BP 109/66
--- NOTE | 2017-07-03 | NUR ---
COWS/CIWA DEFERRED Pt is laying in bed with eyes closed, COWS/CIWA deferred, to be assessed when pt is awake per orders. Respirations 14, even and unlabored. Safety measures in place. Call light within reach. Will continue to monitor.
--- NOTE | 2017-07-03 06:31 | NUR ---
DISCHARGE NOTES Pt is a 37 y/o male admitted on 06/26/17 for benzo and opiate dependence. Pt was dependent on Suboxone, Xanax, Valium and IV heroin. Pt is allergic to PNC, full code, regular diet and on fall/seizure precautions. Pt denies history of seizures, reports PMH of schizophrenia, bipolar disorder and ADHD. Pt presented with anxiety, agitation, restlesssness, inability to sit still, depression, mild sweats, headache, body aches, enlarged pupils, increased HR and BP, difficulty sleeping, anhedonia and dysphoria. Scheduled medications administered, effective in managing his S/S of withdrawal as verbalized by pt. No PRNs administered. Last COWS 8 CIWA 6 at 2000. Pt slept 6 hours. Intake 1500 ml, void x 4, stool x 0. Last vitals at 0500: BP 138/60, 02 97%, HR 74, RR 16, T 97.8. Pt had body and room search prior to departure d/t suspicious activity, no significant items found. Pt is stable to leave for discharge at 0630. Discharge paperwork signed, provided all necessary paperwork to patient. Home medications and cabinet items provided to pt. Addendum: 07/03/17 at 0651 by YAIMA KIM RN PT SCHEDULED TO LEAVE AT 0700, DISCHARGE USABILITY ENGINEER ARRIVED EARLY AT 0630.
--- NOTE | 2017-07-03 06:45 | NUR ---
PT LEFT AMA Pt refused to leave with discharge pile driver operator. Pt refused to sign AMA paperwork.
== END 2017-07-03 06:45 | disposition left against medical advice (07) | DRG 894 ==
LOC: SRC 16:26
PROVIDERS: ADMIT Internal Medicine; ATTEND Internal Medicine
PROC: HZ2ZZZZ Detoxification Services for Substance Abuse Treatment (ICD-10-PCS; principal; 2017-06-26)
PROC: HZ31ZZZ Individual Counseling for Substance Abuse Treatment, Behavioral (ICD-10-PCS; 2017-06-27)
PROC: HZ41ZZZ Group Counseling for Substance Abuse Treatment, Behavioral (ICD-10-PCS; 2017-06-27)
DX: F13.232 Sedative, hypnotic or anxiolytic dependence with withdrawal with perceptual disturbance (principal); F25.0 Schizoaffective disorder, bipolar type; I15.9 Secondary hypertension, unspecified; F10.230 Alcohol dependence with withdrawal, uncomplicated; F11.23 Opioid dependence with withdrawal; Y90.4 Blood alcohol level of 80-99 mg/100 ml; Z91.89 Other specified personal risk factors, not elsewhere classified; Z81.1 Family history of alcohol abuse and dependence; Z81.8 Family history of other mental and behavioral disorders; F90.9 Attention-deficit hyperactivity disorder, unspecified type; F17.210 Nicotine dependence, cigarettes, uncomplicated; Z88.0 Allergy status to penicillin; B19.20 Unspecified viral hepatitis C without hepatic coma; G47.00 Insomnia, unspecified; F41.9 Anxiety disorder, unspecified
CPT/HCPCS: 36415; 70030-TC; 74000; 80307; 80346; 83735; 85025; 86592; 86705; 86803; 87340; 87806; A4663; G0480; J8499

== ENCOUNTER 2017-09-15 19:55 | Inpatient (IN) | payer BC, OTHER ==
[~2017-09-15] VITALS: Ht 177.8 cm; Wt 99.8 kg
[~2017-09-15 19:55] MED LIST changes: -Baclofen PO; -Buspirone Hcl PO; +DIPH50CA37 PO; +GABA-534 PO; -Gabapentin PO; +IBUP-1955 PO; -Ibuprofen PO; +METH-406 PO; -OLAN10TA3 PO; +OXCA300T4 PO; +QUET25TA PO; -VENL150C2 PO
--- NOTE | 2017-09-15 20:33 | NUR ---
PT STATES HE WAS GIVING HIMSELF VITAMIN B12 INJECTIONS IN BOTH HIS ANTECUBITALS, WHEN THE NEEDLES BROKE OFF. PT CLAIMS BOTH NEEDLES ARE STILL LODGED AND STUCK. PT PLACED IN BED WITH SIDERAILS UP.
--- NOTE | 2017-09-15 20:35 | NUR ---
DR EUSEBIO CLARK MD AT BEDSIDE FOR MSE.
--- NOTE | 2017-09-15 20:43 | NUR ---
XRAY AT PT BEDSIDE.
--- NOTE | 2017-09-15 21:07 | NUR ---
SHE VEGA PAGED FOR CONSULT.
--- NOTE | 2017-09-15 21:16 | NUR ---
DR KAPLAN SPEAKING W/ DR GARCIA.
--- NOTE | 2017-09-15 21:26 | NUR ---
DR KAPLAN SPEAKING W/ DR AMITA AMARAL, VASCULAR SURGEON
[2017-09-15] MEDS ORDERED: SULFAMETH/TRIMETH 800/160 MG TABLET PO ONE (21:45)
[2017-09-15] MEDS ORDERED: LORAZEPAM 2 MG/1 ML VIAL IM ONE (21:45)
[2017-09-15] MEDS ORDERED: IV NORMAL SALINE 1000 ML BAG IV ONE (21:45)
[2017-09-15] MEDS ORDERED: TDAP DIPH,PERTUSS,TET VAC/PF 0.5 ML DISP.SYRIN IM ONE ×2 (21:45→21:48)
[2017-09-15] MEDS ORDERED: SULFAMETH/TRIMETH 800/160 MG TABLET ONE (21:47)
[2017-09-15] MEDS ORDERED: LORAZEPAM 2 MG/1 ML VIAL ONE (21:48)
[2017-09-15 21:54] LABS: BASOPHILS # (AUTO) 0.1 K/uL (0.0-8.0); BASOPHILS % (AUTO) 1.4 % (0.0-2.0); EOSINOPHILS # (AUTO) 0.4 K/uL (0.0-0.7); EOSINOPHILS % (AUTO) 5.4 % (0.0-7.0); HEMATOCRIT 44.3 % (36.7-47.1); HEMOGLOBIN 14.7 g/dL (12.5-16.3); LYMPHOCYTES # (AUTO) 2.3 K/uL (20.0-40.0); LYMPHOCYTES % (AUTO) 32.5 % (20.5-51.5); MEAN CORPUSCULAR HEMOGLOBIN 30.1 uug (23.8-33.4); MEAN CORPUSCULAR HGB CONC 33 g/dL (32.5-36.3); MEAN CORPUSCULAR VOLUME 90.8 fL (73.0-96.2); MONOCYTES # (AUTO) 0.6 K/uL (2.0-10.0); MONOCYTES % (AUTO) 8.2 % (0.0-11.0); NEUTROPHILS # (AUTO) 3.7 K/uL (1.8-8.9); NEUTROPHILS % (AUTO) 52.5 % (38.5-71.5); PLATELET COUNT (AUTO) 227 K/uL (152-348); RED BLOOD CELL COUNT(AUTO) 4.88 MIL/uL (4.06-5.63)
[2017-09-15 21:59] LABS: POTASSIUM 4.1 mmol/L (3.5-5.1)
[2017-09-15 22:05] LABS: BILIRUBIN,DIRECT 0.1 mg/dL (0.0-0.2); BILIRUBIN,TOTAL 0.2 mg/dL (0.2-1.0); TOTAL PROTEIN, SERUM 7.6 g/dL (6.4-8.2)
[2017-09-15] MEDS ORDERED: ONDANSETRON 4 MG/2 ML VIAL IV PRN (23:15)
[2017-09-15] MEDS ORDERED: LORAZEPAM 2 MG/1 ML VIAL IV PRN (23:15)
[2017-09-15] MEDS ORDERED: LORAZEPAM 2 MG/1 ML VIAL IV ONE (23:45)
[2017-09-16] VITALS (9 sets, daily range): BP systolic 118–157; BP diastolic 63–95
--- NOTE | 2017-09-16 00:53 | NUR ---
Pt. admitted to tele, under care of Dr. Harp Belongs List completed
--- NOTE | 2017-09-16 01:00 | NUR ---
NEW ADMIT FROM ER, ADMITTED FOR PAIN IN BILATERAL UPPER EXREMITIES. PATIENT IS VERY ANXIOUS AND UNCOOPERATIVE PACING UP AND DOWN THE HALLWAYS PRN ANXIETY MEDS GIVEN ORDERED
[2017-09-16] MEDS: LORAZEPAM 2 MG/1 ML VIAL IV PRN ×4 (01:43→21:46)
[2017-09-16] MEDS: QUETIAPINE FUMARATE 100 MG TABLET PO SCH ×2 (01:45→21:30)
[2017-09-16] MEDS: IV D5/ 0.9% NACL 1,000 ML IV PRN ×2 (02:05→21:30)
--- NOTE | 2017-09-16 06:21 | NUR ---
PATIENT VERY ANXIOUS THROUGHOUT THE SHIFT, PACING UP AND DOWN THE HALLWAYS. HE PULLED OUT HIS IV ACCESS. NEW IV WAS STARTED. PRN ANXIETY MEDS GIVEN X2 ON THIS SHIFT. CALM QUIET ENVIRONMENT PROVIDED. SAFETY MAINTAINED AT ALL TIMES
--- NOTE | 2017-09-16 07:28 | NUR ---
Received client in bed sleeping in a supine position with the HOB flat. No apparent s/s of pain, distress, SOB or discomfort. Bed is at lowest position for safety and call light within reach for assistance. IV is on the left foot running D5NS at 70 cc/hr. Client is dressed in his own cloths. Vape is on the table.
[2017-09-16] MEDS: FAMOTIDINE. 20 MG/2 ML VIAL IV SCH (09:00)
--- NOTE | 2017-09-16 09:21 | NUR ---
Pt walked out of his room with IV pole to notify nurse that he needs Ativan for his anxiety. Noted IV to (R) foot dislodged.
--- NOTE | 2017-09-16 10:00 | NUR ---
Call vascular surgeon and left message to ask if a midline could be ordered and clarification of procedure. According to OPERATIONS SUPERVISOR 2ND SHIFT and primary doctor due to the condition of the pt, it would be best to ask the surgeon if a midline could be ordered.
[2017-09-16] MEDS ORDERED: LORAZEPAM 2 MG/1 ML VIAL IM PRN (10:45)
[2017-09-16] MEDS ORDERED: QUETIAPINE FUMARATE 25 MG TABLET PO PRN (10:45)
[2017-09-16] MEDS ORDERED: DICYCLOMINE HCL 20 MG TABLET PO PRN (10:45)
[2017-09-16 11:59] LABS: BASOPHILS # (AUTO) 0.1 K/uL (0.0-8.0); EOSINOPHILS # (AUTO) 0.3 K/uL (0.0-0.7); EOSINOPHILS % (AUTO) 5.3 % (0.0-7.0); HEMATOCRIT 43.1 % (36.7-47.1); HEMOGLOBIN 14.5 g/dL (12.5-16.3); LYMPHOCYTES # (AUTO) 1.8 K/uL (20.0-40.0); LYMPHOCYTES % (AUTO) 27.5 % (20.5-51.5); MEAN CORPUSCULAR HEMOGLOBIN 30.6 uug (23.8-33.4); MEAN CORPUSCULAR HGB CONC 34 g/dL (32.5-36.3); MEAN CORPUSCULAR VOLUME 90.9 fL (73.0-96.2); MONOCYTES # (AUTO) 0.6 K/uL (2.0-10.0); MONOCYTES % (AUTO) 9.5 % (0.0-11.0); NEUTROPHILS # (AUTO) 3.7 K/uL (1.8-8.9); NEUTROPHILS % (AUTO) 56.7 % (38.5-71.5); PLATELET COUNT (AUTO) 215 K/uL (152-348); RED BLOOD CELL COUNT(AUTO) 4.74 MIL/uL (4.06-5.63); WHITE BLOOD COUNT (AUTO) 6.5 K/uL (3.6-10.2)
[2017-09-16 12:13] LABS: THYROID STIMULATING HORMONE 2.351 mIU/mL (0.358-3.740)
[2017-09-16 12:17] LABS: BILIRUBIN,TOTAL 0.3 mg/dL (0.2-1.0); CREATININE 1.2 mg/dL (0.6-1.3); MAGNESIUM 1.8 mg/dL (1.8-2.4); PHOSPHOROUS 4.8 mg/dL (2.5-4.9); POTASSIUM 4.3 mmol/L (3.5-5.1); TOTAL PROTEIN, SERUM 6.7 g/dL (6.4-8.2)
[2017-09-16 12:19] LABS: *BILIRUBIN,URIN NEGATIVE (NEGATIVE); *BLOOD, URINE Trace-intact (NEGATIVE); *CLARITY,URINE SLIGHTLY CLOUDY (CLEAR); *COLOR,URINE YELLOW (YELLOW); *KETONES,URINE NEGATIVE (NEGATIVE); *PROTEIN,URINE NEGATIVE (NEGATIVE); *UROBILINOGEN,URINE 0.2 E.U./dl (NORMAL); LEUKOCYTE ESTERASE ,URINE NEGATIVE (NEGATIVE); NITRITE, URINE NEGATIVE (NEGATIVE); PH,URINE 5.5 (5.0-8.0); UGLUCOSE NEGATIVE (NEGATIVE)
[2017-09-16 12:24] LABS: BACTERIA,URINE FEW /HPF (NONE SEEN); SQUAMOUS EPITHELIAL CELL,UR FEW /HPF (NONE SEEN); WBC,URINE 0-3 /HPF (0-3)
--- NOTE | 2017-09-16 13:00 | NUR ---
Client stated that he wanted an IV started, two 20g needles and two 22g needles were brought into the room. Client is a hard stick, previous attempts made by myself and from the ER nurses were unsuccessful.
[2017-09-16 13:17] LABS: *AMPHETAMINE, URINE NEGATIVE (NEGATIVE); *BARBITURATE, URINE NEGATIVE (NEGATIVE); *CANNABINOID, URINE NEGATIVE (NEGATIVE); *COCCAINE, URINE NEGATIVE (NEGATIVE); *OPIATE, URINE NEGATIVE (NEGATIVE); *PHENCYCLIDINE SCREEN,URINE NEGATIVE (NEGATIVE)
[2017-09-16] MEDS ORDERED: LORAZEPAM 2 MG/1 ML VIAL IV STA (14:07)
[2017-09-16] MEDS ORDERED: PROPOFOL 200 MG/20 ML BOTTLE IV ONE (15:59)
[2017-09-16] MEDS ORDERED: IV LACTATED RINGERS SOLUTION 1,000 ML BAG IV ONE (15:59)
[2017-09-16] MEDS ORDERED: DEXAMETHASONE SOD PHOSPHATE 4 MG INJ IV ONE (15:59)
[2017-09-16] MEDS ORDERED: SEVOFLURANE 250 ML BOTTLE IH ONE (15:59)
[2017-09-16] MEDS ORDERED: IRR NORMAL SALINE IRRIGATION 1,000 ML BOTTLE IR ONE (15:59)
[2017-09-16] MEDS: GABAPENTIN 300 MG CAPSULE PO SCH (16:40)
[2017-09-16] MEDS: CLONIDINE HCL 0.1 MG TABLET PO SCH (16:40)
[2017-09-16] MEDS ORDERED: BACITRACIN 50,000 UNITS VIAL ONE (17:24)
[2017-09-16] MEDS ORDERED: BUPIVACAINE PF 0.5% 30 ML VIAL ONE ×2 (17:25→20:06)
--- NOTE | 2017-09-16 17:30 | NUR ---
Client was guided down to surgery in [facility] to surgery by two OR nurses. Client stated he was nervous about surgery. No apparent s/s of pain. Client removed his necklace and a white ring on his left hand noted, client was unable to remove ring from ring finger. His belongings, and cell phone were left in his room.
--- NOTE | 2017-09-16 18:00 | NUR ---
Received a call from a women by the name of Sabi, she is the RP to the client. She asked about the client and if he had gone to surgery. Her questions were answered accordingly and stated that detail information was not possible to give over the phone. She stated she would call back between 8pm and 9pm.
--- NOTE | 2017-09-16 18:23 | NUR ---
Client is in surgery Addendum: 09/16/17 at 1824 by BRENDA SALAMANCA RN Amended: Links added.
[2017-09-16] MEDS ORDERED: CLINDAMYCIN PHOSPHATE 600 MG/4 ML VIAL ONE (19:02)
--- NOTE | 2017-09-16 19:52 | NUR ---
end of shift notes: all requests from client were attended to. Client was compliant with nursing care and medications. Client was noted to has high anxiety levels throughout the day. Several times he was pacing up and down the hallways.Client is still in surgery
[2017-09-16] MEDS ORDERED: FENTANYL CITRATE 100 MCG/2 ML AMPUL ONE (20:32)
[2017-09-16] MEDS: OXCARBAZEPINE 300 MG TABLET PO SCH (21:30)
--- NOTE | 2017-09-16 21:30 | NUR ---
RECEIVED PATIENT BACK FROM SURGERY. PATIENT IS YELLING AND SCREAMING FROM ROOM, SHOUTING FOR PAIN MEDICATION. PATIENT IS A/O X4. VERY ANXIOUS AND AGITATED AT THIS TIME. NOTIFIED DR. KOCH THAT PATIENT IS SCREAMING IN PAIN. RECEIVED ORDER FOR DILAUDID 1MG IV Q3 PRN FOR PAIN. INFORMED PATIENT THAT NEW MEDICATION ORDER WAS JUST RECEIVED AND WILL BE SHORTLY ADMINISTERED. PATIENT VERBALIZED UNDERSTANDING. VSS. AFEBRILE. BILATERAL DRESSINGS NOTED AC'S, CLEAN, DRY AND INTACT. CALL LIGHT IN REACH. ALL NEEDS ATTENDED.
[2017-09-16] MEDS: HYDROMORPHONE 2 MG/1 ML DISP.SYRIN IV PRN (21:47)
--- NOTE | 2017-09-16 21:50 | NUR ---
PATIENT GIVEN DILAUDID 1MG IV PRN PER RN AND ATIVAN 2MG IV PRN FOR ANXIETY. PATIENT PLACED ON O2 3L NC SATING 97-98%. CALL LIGHT IN REACH. NO RESP. DISTRESS NOTED. CALL LIGHT IN REACH. ALL NEEDS ATTENDED. WILL CONTINUE TO MONITOR.
[2017-09-17 00:30] VITALS: BP 132/72
[2017-09-17] MEDS: HYDROMORPHONE 2 MG/1 ML DISP.SYRIN IV PRN ×3 (00:39→07:50)
[2017-09-17] MEDS: LORAZEPAM 2 MG/1 ML VIAL IV PRN ×6 (00:39→23:48)
[2017-09-17] MEDS ORDERED: CLINDAMYCIN PHOSPHATE 900 MG/6 ML VIAL ONE (01:02)
[2017-09-17] MEDS ORDERED: CLINDAMYCIN PHOSPHATE IV 900 MG in IV DEXTROSE 5% 100 ML IV ONE ×4 (02:30→11:30)
[2017-09-17] MEDS: KETOROLAC TROMETHAMINE 15 MG INJ IVP PRN (03:09)
[2017-09-17] MEDS: IV D5/ 0.9% NACL 1,000 ML IV PRN (03:42)
[2017-09-17 04:00] VITALS: BP 115/60
--- NOTE | 2017-09-17 05:31 | NUR ---
PATIENT NEEDS FREQUENT REDIRECTION. PATIENT WILL ASK FOR PAIN MEDICATION AND INFORMED TO STAY IN BED FOR SAFETY. PATIENT IS CONTINUOUSLY WALKING OUT OF ROOM AND WANDERING HALLWAYS, GOING INTO RESTRICTED AREAS. PATIENT IS ALSO CONTINUOUSLY PLAYING WITH DRESSINGS NOTED TO BILATERAL ARMS AND REMOVING TAPE AND ALSO REMOVING TAPE AROUND RIGHT EXTERNAL JUGULAR. WILL CONTINUE TO MONITOR.
--- NOTE | 2017-09-17 06:54 | NUR ---
PATIENT KEEPS WALKING AROUND HALLWAY. REPEATEDLY INFORMED PATIENT THAT HE NEEDS TO STAY IN HIS ROOM. PATIENT DISCONNECTED HIS CONTINUOUS IVF FROM IV ACCESS NOTED TO RIGHT EXTERNAL JUGULAR. NON-COMPLIANT. POKER MACHINE ATTENDANT NOTIFIED. WILL CONTINUE TO MONITOR.
[2017-09-17 07:23] LABS: BASOPHILS # (AUTO) 0.1 K/uL (0.0-8.0); BASOPHILS % (AUTO) 0.8 % (0.0-2.0); EOSINOPHILS # (AUTO) 0.3 K/uL (0.0-0.7); EOSINOPHILS % (AUTO) 3.6 % (0.0-7.0); HEMATOCRIT 41.7 % (36.7-47.1); HEMOGLOBIN 13.9 g/dL (12.5-16.3); LYMPHOCYTES # (AUTO) 1.8 K/uL (20.0-40.0); LYMPHOCYTES % (AUTO) 22.2 % (20.5-51.5); MEAN CORPUSCULAR HEMOGLOBIN 30.5 uug (23.8-33.4); MEAN CORPUSCULAR HGB CONC 34 g/dL (32.5-36.3); MONOCYTES # (AUTO) 0.7 K/uL (2.0-10.0); MONOCYTES % (AUTO) 9.3 % (0.0-11.0); NEUTROPHILS # (AUTO) 5.1 K/uL (1.8-8.9); NEUTROPHILS % (AUTO) 64.1 % (38.5-71.5); PLATELET COUNT (AUTO) 193 K/uL (152-348); RED BLOOD CELL COUNT(AUTO) 4.57 MIL/uL (4.06-5.63); WHITE BLOOD COUNT (AUTO) 7.9 K/uL (3.6-10.2)
[2017-09-17 07:55] LABS: BILIRUBIN,TOTAL 0.3 mg/dL (0.2-1.0); CREATININE 1.1 mg/dL (0.6-1.3); MAGNESIUM 1.7 mg/dL (1.8-2.4); PHOSPHOROUS 4.5 mg/dL (2.5-4.9); POTASSIUM 4.1 mmol/L (3.5-5.1); TOTAL PROTEIN, SERUM 6.5 g/dL (6.4-8.2)
--- NOTE | 2017-09-17 08:10 | NUR ---
PATIENT WALKING AROUND THE UNIT. CLAIMS HE IS IN PAIN AND PAIN MEDICATIONS ARE NOT WORKING. PATIENT IN PAIN OVER ARMS RATED 10/10. APPEARS ANXIOUS. PRN DILAUDID AND ATIVAN GIVEN.
[2017-09-17] MEDS: FAMOTIDINE. 20 MG/2 ML VIAL IV SCH ×2 (09:00→09:08)
[2017-09-17] MEDS: CLONIDINE HCL 0.1 MG TABLET PO SCH ×4 (09:00→17:00)
[2017-09-17] MEDS: OXCARBAZEPINE 300 MG TABLET PO SCH ×3 (09:00→21:00)
[2017-09-17] MEDS: NICOTINE 14 MG/24HR PATCH TD SCH (09:09)
[2017-09-17] MEDS: GABAPENTIN 300 MG CAPSULE PO SCH ×3 (09:09→17:00)
--- NOTE | 2017-09-17 09:23 | NUR ---
PATIENT REFUSED FAMOTIDINE, TRILEPTAL AND CLONIDINE MEDICATIONS. DISCUSSED RISKS AND BENEFITS BUT PATIENT REFUSED.
--- NOTE | 2017-09-17 09:26 | NUR ---
PATIENT NON-COMPLIANT WITH IV FLUIDS WALKS AROUND THE UNIT AND DISCONNECTS FLUID
[2017-09-17] MEDS ORDERED: HYDROMORPHONE 2 MG/1 ML DISP.SYRIN IV ONE (10:15)
[2017-09-17] MEDS ORDERED: HYDROMORPHONE 2 MG/1 ML DISP.SYRIN IV PRN (11:00)
[2017-09-17 11:31] VITALS: BP 122/64
[2017-09-17] MEDS: HYDROMORPHONE HCL 2 MG TABLET PO PRN ×3 (11:43→20:22)
[2017-09-17] MEDS ORDERED: HYDROMORPHONE HCL 2 MG TABLET PO PRN (11:45)
[2017-09-17] MEDS ORDERED: MAGNESIUM OXIDE 400 MG TABLET PO ONE (12:30)
--- NOTE | 2017-09-17 13:00 | NUR ---
DRESSING CHANGED OVER SURGICAL SITE. MINIMAL SOAKED DRIED SEROUS DRAINAGE. NO S/S OF INFECTION.
[2017-09-17] MEDS: MORPHINE SULFATE 4 MG/1 ML DISP.SYRIN IV PRN ×4 (13:06→23:22)
[2017-09-17] MEDS ORDERED: LORAZEPAM 2 MG/1 ML VIAL IV ONE (15:27)
[2017-09-17] MEDS: OLANZAPINE 5 MG TABLET PO SCH (16:08)
--- NOTE | 2017-09-17 18:49 | NUR ---
PATIENT COMPLAINED OF PAIN THROUGHOUT THE SHIFT. PATIENT HAD EPISODES OF ANXIOUSNESS. PAIN MEDICATIONS DILAUDID, MORPHINE AND ATIVAN GIVEN ACCORDINGLY. SEEN BY DR KOCH
--- NOTE | 2017-09-17 19:30 | NUR ---
PT IN ROOM ALERT AWAKE ORIENTED ANXIOUS IN NO ACUTE DISTRESS. ABLE TO AMBULATE DOWN THE WARE WITHOUT DIFFICULTY. IV SITE ON EXTERNAL JUGLAR PATENT AND INTACT. PT NEEDS FREQUENT REMINDERS AND REDIRECTION REGARDING PAIN MEDICATIONS INCLUDING TIME. DRESSING TO BILATERAL ARMS INTACT WITH NO DRAINAGE. PT REFUSING ROUTINE HS MEDICATIONS AND STATES HE ONLY WANTS HIS ATIVAN, MORPHINE, AND DILAUDED. CONTINUE TO MONITOR. CALL LIGHT PLACED WITHIN REACH.
[2017-09-17 20:43] VITALS: BP 160/119
[2017-09-18] MEDS: HYDROMORPHONE HCL 2 MG TABLET PO PRN ×4 (00:25→12:11)
[2017-09-18] MEDS: MORPHINE SULFATE 4 MG/1 ML DISP.SYRIN IV PRN ×4 (02:19→11:26)
[2017-09-18] MEDS: LORAZEPAM 2 MG/1 ML VIAL IV PRN ×4 (03:41→21:05)
[2017-09-18 04:36] VITALS: BP 109/61
--- NOTE | 2017-09-18 06:00 | NUR ---
PT ALERT AWAKE IN NO ACUTE DISTRESS. PT VERBALIZED CONTINUOUS PAIN WITH PERIODS OF ANXIETY NOTED THROUGHOUT NIGHT. PT MADE AWARE OF PRN MEDICATIONS AND AVAILABLE TIME. NO NEW ORDERS AT THIS TIME. ABLE TO FOLLOW SIMPLE COMMANDS. NEEDS FREQUENT REDIRECTION AND TEACHING REGARDING PAIN AND ANXIETY MEDICATION. BILATERAL AC ARMS DRESSINGS WERE REPLACED WITH KERLIX. NO ACTIVE OR INCREASED BLEEDING PRESENT. NO S/S OF INFECTION NOTED TO NILAY. V/S ARE WNL. ENCOURAGED DEEP BREATHING EXERCISES. PT REFUSES PICTURES OF BILATERAL ARMS S/P SX. CALL LIGHT WITHIN REACH.
--- NOTE | 2017-09-18 07:38 | NUR ---
PATIENT NOTED WANDERING WARE OF UNIT, REDIRECTED TO ROOM, PATIENT ALSO NOTED TOUCHING JUGULAR PICC LINE , WILL CHANGE DRESSING, COMPLAINT OF BILATERAL ARM PAIN, AND APPEARS ANXIOUS AT THIS TIME, WILL GIVE PRN
[2017-09-18] MEDS: GABAPENTIN 300 MG CAPSULE PO SCH ×3 (07:55→16:55)
[2017-09-18] MEDS: CLONIDINE HCL 0.1 MG TABLET PO SCH ×3 (08:16→16:57)
[2017-09-18] MEDS: NICOTINE 14 MG/24HR PATCH TD SCH (08:17)
[2017-09-18] MEDS: FAMOTIDINE 20 MG TABLET PO SCH (08:18)
[2017-09-18] MEDS: OXCARBAZEPINE 300 MG TABLET PO SCH ×2 (08:18→21:05)
[2017-09-18] MEDS: OLANZAPINE 5 MG TABLET PO SCH (08:18)
--- NOTE | 2017-09-18 10:12 | NUR ---
PATIENT'S RIGHT SIDED JUGULAR PICC LINE REDRESSED AFTER PATIENT PEELED DRESSING OFF, BILATERAL AC DRESSING REPLACED AFTER REMOVED BY PATIENT, PATIENT CONTINUES TO PACE UNIT, WILL CONTINUE TO REDIRECT
[2017-09-18 11:55] VITALS: BP 142/69
[2017-09-18] MEDS: HYDROMORPHONE 4 MG/1 ML DISP.SYRIN IV PRN ×2 (14:37→19:56)
[2017-09-18] MEDS ORDERED: LORAZEPAM 2 MG/1 ML VIAL IV ONE (15:00)
[2017-09-18 15:59] VITALS: BP 124/78
--- NOTE | 2017-09-18 17:09 | NUR ---
PATIENT NOTED UNDRESSING BILATERAL ARM DRESSING, SURGICAL SITES REDRESSED AT THIS TIME, PRN ATIVAN GIVEN FOR ANXIETY,
--- NOTE | 2017-09-18 19:40 | NUR ---
PT RECEIVED IN CHAIR, AWAKE. A/OX4. ABLE TO MAKE NEEDS KNOWN. V/S STABLE. IN NO ACUTE DISTRESS. PT COMPLAINS OF BILATERAL ARM PAIN AT AC SITE 03/17. DRESSING CLEAN AND INTACT. SMALL SERIOUS DRAINAGE NOTED. NO S/S OF INFECTION AT THIS TIME. PT REQUEST FOR IV FLUIDS TO BE HELD UNTIL HE IS IN BED, READY TO SLEEP. PICC LINE ON RIGHT NECK, INTACT AND PATENT, SALINE FLUSHED. ON RA, TOLERATING WELL. AFEBRILE. SAFETY MEASURES IMPLEMENTED. CALL LIGHT WITHIN REACH.
--- NOTE | 2017-09-18 20:05 | NUR ---
ADMINISTERED DILAUDID ORDERED. IN STABLE CONDITION. WILL CONT TO MONITOR.
[2017-09-18 20:29] VITALS: BP 116/64
--- NOTE | 2017-09-18 21:10 | NUR ---
ADMINISTERED ATIVAN ORDERED. PT STATES FEELING ANXIOUS. SEEN PACING BACK AND FORTH IN ROOM AND HALLWAY.
[2017-09-18] MEDS: KETOROLAC TROMETHAMINE 15 MG INJ IVP PRN (21:54)
--- NOTE | 2017-09-18 21:56 | NUR ---
PT CONT TO C/O OF BILATERAL ANTECUBITAL PAIN 02/14. TRAMADOL ADMINISTERED ORDERED. BP WNL. IN STABLE CONDITION. WILL CONT TO MONITOR.
--- NOTE | 2017-09-18 23:15 | NUR ---
BILATERAL DRESSINGS ON ANTECUBITAL SURGICAL SITE SEEN SOAKED WITH SEROUS FLUID. DRESSING REMOVED. SURGICAL SITES SHOWS NO SITE OF INFECTION AT THIS TIME. SITE CLEANED WITH NS, PAT DRY, ADHESIVE DRESSING CHANGED.
[2017-09-19] MEDS: HYDROMORPHONE 4 MG/1 ML DISP.SYRIN IV PRN ×4 (00:01→11:51)
[2017-09-19] MEDS: IV D5/ 0.9% NACL 1,000 ML IV PRN (00:42)
[2017-09-19] MEDS: LORAZEPAM 2 MG/1 ML VIAL IV PRN ×4 (00:50→12:41)
--- NOTE | 2017-09-19 00:50 | NUR ---
ADMINISTERED ATIVAN ORDERED. PT STATES HE FEELS EXTREMELY ANXIOUS, "FEELS LIKE HEART IS JUMPING OUT OF CHEST. I AM HAVING WITHDRAWAL SYMPTOMS BECAUSE I USUALLY TAKE XANAX AND ATIVAN IS NOT WORKING." IN STABLE CONDITION. WILL CONT TO MONITOR. IVF RESTARTED AT THIS TIME.
[2017-09-19 04:00] VITALS: BP 146/67
--- NOTE | 2017-09-19 06:05 | NUR ---
END OF SHIFT NOTES. PT UNABLE TO SLEEP. CONT TO C/O OF BILATERAL ANTECUBITAL PAIN. PICC LINE INTACT AND PATENT. PT STATES HE WANT IVF HELD AT THIS TIME, BUT PT MAINTAINS FLUID HYDRATION THROUGHOUT SHIFT. CONT TO C/O FEELING SEVERELY ANXIOUS THROUGHOUT SHIFT. WALKS THROUGH THE HALLWAYS. NEEDS FREQUENT REDIRECTION BACK TO ROOM. ALL NEEDS ATTENDED. SAFETY MAINTAINED. CALL LIGHT WITHIN REACH.
--- NOTE | 2017-09-19 07:32 | NUR ---
RECEIVED SHIFT REPORT FROM SALESPERSON [employer] NURSE. PATIENT IS AWAKE, WALKING AROUND THE FLOOR REQUESTING FOR PAIN MEDICATION. PAIN MEDICATION NOT DUE AT THIS TIME. WILL PROVIDE PAIN MANAGEMENT. STABLE CONDITION AT THIS TIME, NO S/S OF DISTRESS. AWAKE, ALERT, AND ORIENTED AT THIS TIME. CALL LIGHT WITHIN.
[2017-09-19] MEDS: CLONIDINE HCL 0.1 MG TABLET PO SCH ×3 (07:50→12:44)
[2017-09-19] MEDS: NICOTINE 14 MG/24HR PATCH TD SCH (07:50)
[2017-09-19] MEDS: OLANZAPINE 5 MG TABLET PO SCH (07:51)
[2017-09-19] MEDS: FAMOTIDINE 20 MG TABLET PO SCH (07:51)
[2017-09-19] MEDS: OXCARBAZEPINE 300 MG TABLET PO SCH (07:51)
[2017-09-19] MEDS: GABAPENTIN 300 MG CAPSULE PO SCH ×2 (07:51→12:40)
[2017-09-19 11:00] VITALS: BP 138/79
[2017-09-19] MEDS: KETOROLAC TROMETHAMINE 15 MG INJ IVP PRN (13:41)
[2017-09-19 15:05] VITALS: BP 156/77
[2017-09-19 15:12] VITALS: BP 118/58
[2017-09-19] MEDS ORDERED: HYDR8TAB2 PO (15:27)
[2017-09-19] MEDS ORDERED: TRAM50TA2 PO (15:27)
[2017-09-19] MEDS ORDERED: CARI350T PO (15:27)
--- NOTE | 2017-09-19 16:00 | NUR ---
PICTURES TAKEN OF LEFT AND RIGHT ANTECUBITAL SURGICAL NILAY AND PLACED IN CHART.
--- NOTE | 2017-09-19 16:00 | NUR ---
PATIENT DISCHARGED IN STABLE CONDITION, NO S/S OF DISTRESS, VITAL SIGNS STABLE. BELONGINGS CHECKLIST CHECKED AND SIGNED BY PATIENT. DISCHARGE INSTRUCTIONS/EDUCATION PROVIDED TO PATIENT. DISCHARGE DOCUMENTATION SIGNED BY PATIENT. MEDICATION PRESCRIPTIONS PROVIDED TO PATIENT PER MD ORDERS. PICCLINE JUGULAR TAKEN OUT SAFELY, NO SIGNS OF BLEEDING. ID BAND TAKEN OFF. PATIENT LEFT HOSPITAL IN SAFE CONDITION PER PATIENT'S TRANSPORTATION SERVICE.
== END 2017-09-19 16:00 | disposition home or self-care (01) | DRG 908 ==
LOC: ER 19:55 → EEVIPCON 09-16 → TELE 09-16 → MED 09-16 16:40
PROVIDERS: ADMIT Internal Medicine; ATTEND Internal Medicine
PROC: 0KC Muscles, Extirpation (ICD-10-PCS; principal; 2017-09-16 17:40)
PROC: 0KC Muscles, Extirpation (ICD-10-PCS; principal; 2017-09-16 17:40)
DX: S51.842A Puncture wound with foreign body of left forearm, initial encounter (principal); F13.20 Sedative, hypnotic or anxiolytic dependence, uncomplicated; F25.0 Schizoaffective disorder, bipolar type; F17.210 Nicotine dependence, cigarettes, uncomplicated; S51.841A Puncture wound with foreign body of right forearm, initial encounter; X78.8XXA Intentional self-harm by other sharp object, initial encounter; Y93.89 Activity, other specified; Y92.89 Other specified places as the place of occurrence of the external cause; Z79.899 Other long term (current) drug therapy; F41.9 Anxiety disorder, unspecified; E78.1 Pure hyperglyceridemia; E66.3 Overweight; Z68.31 Body mass index [BMI] 31.0-31.9, adult; F11.10 Opioid abuse, uncomplicated; G89.29 Other chronic pain; G62.9 Polyneuropathy, unspecified
CPT/HCPCS: 36415; 71045; 73070; 73080; 76001; 80307; 83735; 84100; 84443; 85025; 85730; 87086; 90715; 93005; A4217; A4649; A4663; C1751; J1100; J1170; J1885; J2060; J2270; J3010; J3490; J7030; J7042; J7060; J7120

== ENCOUNTER 2018-11-30 19:42 | Emergency (ER) | payer BC ==
[~2018-11-30 19:42] MED LIST changes: +CARI350T PO; -CLON0.1T14 PO; -DICY20TA28 PO; -DIPH50CA37 PO; -HYDR-3895 PO; +HYDR8TAB2 PO; -IBUP-1955 PO; -METH-406 PO; -Nicotine TD; +TRAM50TA2 PO
--- NOTE | 2018-11-30 19:50 | NUR ---
PATIENT NOT IN ER WAITING AREA. PATIENT IS PACING OUTSIDE OF ER, HE IS NOT SURE IF HE WANTS TO BE SEEN. HE DENIES SI/HI/AH/VH. HE STATED HE WAS LOOKING TO BE ADMITTED TO [facility].
--- NOTE | 2018-11-30 19:52 | NUR ---
PATIENT REENTERED THE ER WAITING AREA, THEN HE PROCEEDED TO WALK OUT OF THE FACILITY ONCE AGAIN.
== END 2018-11-30 19:57 | disposition left against medical advice (07) ==
LOC: ER 19:45
DX: Z53.21 Procedure and treatment not carried out due to patient leaving prior to being seen by health care provider (principal)

== ENCOUNTER 2018-11-30 20:26 | Emergency (ER) | payer BC ==
--- NOTE | 2018-11-30 20:30 | NUR ---
PATIENT WAS STRECHING AND PUNCHING IN THE WATING ROOM. STATES "I AM JUST SHADOW BOXING." [employer] INSTRUCTED PATIENT SEVERAL TIMES TO REMAIN SEATED UNTIL CALL TO BE TRIAGED BUT PATIENT REFUSED AND LEFT THE ER
--- NOTE | 2018-11-30 21:00 | NUR ---
PATIENT LEFT WITHOUT BEING TRIAGED OR SEEN BY ERMD
== END 2018-11-30 21:14 | disposition left against medical advice (07) ==
LOC: ER 20:31
DX: Z53.21 Procedure and treatment not carried out due to patient leaving prior to being seen by health care provider (principal)